=== PATIENT | male | born 1955 | race Caucasian/White ===

== ENCOUNTER 2021-03-23 11:12 | Inpatient (IN) ==
[2021-03-23] MEDS ORDERED: Heparin IV Adult Wt-Based Standard WITH Bolus Protocol IV STA (11:48)
[2021-03-23] MEDS ORDERED: HEPARIN SOD (PORCINE) 1000 UNIT/ML IV ONE (12:06)
[2021-03-23] MEDS ORDERED: ACETAMINOPHEN 325 MG TAB PO STA (12:13)
--- NOTE | 2021-03-23 12:16 | History & Physical Report ---
Date of Service March 23, 2021 Assessment & Plan (1) Pulmonary emboli: (2) Hypoxia: (3) Pre-diabetes: (4) Asthma: (5) HTN (hypertension): (6) Tobacco use: (7) Cerebral palsy: (8) Chronic cough: This is a 65-year-old male who has significant past medical history of prediabetes, HTN, asthma, restrictive lung disease, morbid obesity, depression, cerebral palsy, tobacco use presents to ED at the referral of PCP secondary to abnormal chest CTA. CTA chest 1. A few filling defects in the subsegmental arteries of the right upper lobe and left lower lobe suggesting pulmonary emboli. No right heart strain. Pulmonary embolism b/l subsegmental Hypoxia Admit to PCU continue IV heparin - pt received bolus in ED obtain b/l lower ext dopplers echocardiogram ordered continue oxygen supplementation CXR concerning for mild pulm edema/effusions - give IV lasix 20mg x 1 now daily weights/strict intake & output Elevated temperature likely reactive 2/2 to PE obtain urinalysis to r/o infectious etiology obtain procalcitonin Pre DM Last A1c 6.3 on 03/07/2021 Monitor BSG, if consistent hyperglycemia will add coverage HTN Patient BP on the lower side, he did take his home meds prior to arrival Continue metoprolol, hold losartan and amlodipine for now Reevaluate and resume antihypertensives when able Asthma/RLD/Chronic cough continue ICS/prn albuterol add tessalon perles add omeprazole for chronic cough ? gerd Pt had spirometry 01/28 which was reviewed by pulm and felt to be normal with mild restriction felt 2/2 to chronic hemidiaphragm elevation recommend close outpt f/u with pulm Tobacco use pt chews snuff 1/2 can/day declines nicotine patch for now encourage smoking cessation Morbid obesity encourage lifestyle modifications Cerebral Palsy functional supportive care pt lives home alone Dispo: PCU PCP: Juan FULL CODE Pt was seen and examined in collaboration with Dr. Luna, please see addendum History of Present Illness Chief Complaint: Referred by PCP secondary to abnormal CTA of chest. Primary Care Provider: Juan This is a 65-year-old male who has significant past medical history of prediabetes, HTN, asthma, restrictive lung disease, morbid obesity, depression, cerebral palsy, tobacco use presents to ED at the referral of PCP secondary to abnormal chest CTA. Patient was seen and evaluated in clinic today at PCPs office in follow-up chronic cough. He does follow with pulmonology secondary to asthma and restrictive lung disease and has been on and off multiple inhalers due to a persistent cough for the past year. He started Advair 2 weeks ago without improvement of cough. He further complains of feeling tired, worn out, dizzy and worsening FISH. Patient complained of progressive symptoms worsening in the last 2 weeks. In clinic he was visibly short of breath and lab work and CTA was ordered. He was found to have a right upper lobe and lower lobe pulmonary embolism with filling defects in subsegmental arteries. He was further referred to ED. In ED patient was hypoxic on arrival to 87% requiring 2 L of O2 to maintain oxygen saturation. His blood pressure was low normal as well. This morning he did take his amlodipine, losartan and metoprolol. He states over the past 2 to 3 days he has been more dizzy with walking. He denies any recent illness, fever, chills, sweats, syncope, chest pain, shortness breath at rest, hemoptysis, nausea, vomiting, abdominal pain, change in bowel or urinary habits. His biggest complaint is, "this cough." He states at night he, "feels up an entire T towel of foamy white phlegm." This cough has become debilitating and none of the inhalers are working. In ED patient remained hemodynamically stable although he was tachycardic with heart rate in the 120s, temp 37.8 and is requiring supplemental oxygen. H&H stable at 13.3 and 39.4. CMP generally unremarkable except for BUN 19, glucose 150 and albumin 3.3. In ED he was started on IV heparin with bolus. Patient's son is at bedside. Allergies Allergy/AdvReac Type Severity Reaction Status Date / Time FARIDEH Inhibitors AdvReac Unknown cough per Verified 03/25/18 05:53 PCP records Home Medications Medication Instructions Recorded Confirmed Type albuterol sulfate 90 mcg INHALATION Q4H PRN 03/23/21 03/23/21 History amlodipine 5 mg PO DAILY 03/23/21 03/23/21 History budesonide-formoterol [Symbicort] 2 inh INHALATION UD 03/23/21 03/23/21 History losartan 100 mg PO DAILY 03/23/21 03/23/21 History metoprolol succinate 25 mg PO DAILY 03/23/21 03/23/21 History Past Med/Surg History Medical History Asthma Cerebral palsy Depression HTN (hypertension) Pre-diabetes Tobacco use Surgical History History of endoscopic sinus surgery History of right shoulder replacement History of surgery on wrist History of total knee replacement (TKR) also with revision Dr. Akbar Family History Mother Hypertension Stroke Father Leukemia Social History (Updated 03/23/21 @ 13:31 by Joie Parish PA-C) Smoking Status: Never smoker Tobacco Type: Cigarettes and Smokeless Tobacco (Dip or Chew) Do You Dip or Chew Tobacco: Yes (1/2can/day); Hx Alcohol Use: Yes Alcohol type: beer Hx Substance Use: No Preferred Language: Micronesian Communication Ability: Effective A R Specialist Required: No Beliefs That Will Affect Care: None marital status: Single Current Living Situation: Family Current Living Situation Comment: lives w son Feels Safe at Home: Yes Safety Concerns: Feels Safe At This Time Assistive Devices: Oxygen - Continuous Review of Systems Review of Systems: All systems reviewed & are unremarkable except as noted in HPI & below Physical Exam Physical Exam: Constitutional: WD/WN, morbidly obese, vitals as above, NAD, sitting up in bed, pleasant, conversing easily Head: Normocephalic, Atraumatic Eyes: PERRL, conjunctivae normal, anicteric sclerae ENMT: external ear and nose normal, oropharynx normal Neck: trachea midline, no thyromegaly normal visual inspection Respiratory: normal respiratory effort, lungs clear to auscultation, no wheeze, rales, rhonchi. Normal insp/exp effort, no accessory muscle use Cardiovascular: RRR, no murmur, trace lower extremity pretibial edema right greater than left Vessels: no JVD or carotid bruit Chest: normal inspection of chest Abdomen: normal bowel sounds, soft, nontender, no hepatosplenomegaly Musculoskeletal: no cyanosis or clubbing, extremities motor strength 5/5 Skin: no rashes, warm and dry normal turgor Neurologic: PERRL, EOMI, accommodation nl, no face palsy, no dysarthria CN's II-XI intact bilaterally and moves all extremities Psychiatric: A+Ox3, euthymic affect Lymphatic: no cervical or axillary lymphadenopathy : deferred Results & Data Results & Data ([facility]) Vital Signs (Past 12 Hours) Vital Signs Temp Pulse Resp BP Pulse Ox 03/23/21 11:20 37.8 C H 120 H 22 129/82 87 L Diagnostic Findings CXR: 1. Interval progression of the diffuse interstitial/vascular thickening suggestive of mild pulmonary edema. 2. Persistent cardiomegaly and elevation of the right hemidiaphragm. 3. Trace bilateral pleural effusions. CTA Chest: EXAM EXAM: CT PULMONARY EMBOLUS W CONTRAST DATE and TIME: 03/23/2021 10:03 am HISTORY CLINICAL INFORMATION: rule out PE TECHNIQUE Oral Contrast: Oral contrast was not administered. IV Contrast: IV contrast used COMPARISON XR CHEST 2 VIEWS dated 01/12/2020 FINDINGS MEDIASTINUM AND RICKY: Unremarkable HEART: There is no pericardial effusion. LARGE AIRWAYS: Mild peribronchial thickening is likely inflammatory in nature. This is predominantly seen in the right middle and lower lobes. LUNGS: Right basilar atelectasis/scarring. Minimal left basilar atelectasis. Nodular foci along the fissures are likely subpleural nodes. PLEURA: There are no pleural effusions. CHEST WALL/SOFT TISSUES: There is no axillary lymphadenopathy. Elevated right hemidiaphragm. LINES AND DEVICES: None BONES: Degenerative osseous changes. Scoliosis. Right shoulder hardware. VESSELS: Atherosclerotic changes in the aorta and coronary arteries. A few filling defects in the subsegmental arteries of the right upper lobe seen on images 94, 98 and 76 of series 9. There is also a subsegmental filling defect in the left lower lobe on image 169 of series 9. UPPER ABDOMEN: Unremarkable IMPRESSION IMPRESSION 1. A few filling defects in the subsegmental arteries of the right upper lobe and left lower lobe suggesting pulmonary emboli. No right heart strain. 2. Chronic elevation of the right hemidiaphragm with basilar atelectasis/scarring. Consider fluoroscopic examination to evaluate the diaphragmatic motion. Medications Administered Medication List Heparin Sodium/Dextrose (Heparin Sodium/Dextrose) 25,000 units in 500 mls @ 33 mls/hr IV .[id number] [facility]; Protocol Stop: 04/22/21 12:05 Last Admin: 03/23/21 12:52 Dose: 1,650 units/hr, 33 mls/hr Documented by: [id number] Cosigned by: [id number] Discontinued Medications Acetaminophen (Acetaminophen 325 Mg Tab) 650 mg PO NOW STA Stop: 03/23/21 12:14 Last Admin: 03/23/21 12:49 Dose: 650 mg Documented by: [id number] Heparin Sodium (Porcine) (Heparin Sod (Porcine) 1000 Unit/Ml) 1 units IV NOW ONE Stop: 03/23/21 12:07 Last Admin: 03/23/21 12:52 Dose: 7,000 units Documented by: [id number] Cosigned by: [id number] Heparin Sodium/Dextrose (Heparin Iv Adult Wt-Based Standard With Bolus Protocol) 1 ea IV NOW STA; Protocol Stop: 03/23/21 11:49 Last Admin: 03/23/21 12:53 Dose: 1 ea Documented by: [id number] ECG Rate (beats per minute): 101 Rhythm: sinus tachycardia Findings: + nonspecific-ST abn (inferior) COVID-19 Results Results COVID-19 Adm Lab Results: RBC 4.35 M/uL (4.7-6.1) L 03/23/21 WBC 5.87 K/uL (4.8-10.8) 03/23/21 Hgb 13.3 g/dL (14.0-18.0) L 03/23/21 Hct 39.3 % (42-52) L 03/23/21 Plt Count 196 K/uL (130-400) 03/23/21 Neutrophils (%) (Auto) 40.9 % 03/23/21 Lymphocytes (%) (Auto) 48.2 % 03/23/21 Monocytes # (Auto) 0.49 K/uL (0.11-0.59) 03/23/21 Eosinophils # (Auto) 0.07 K/uL (0-0.5) 03/23/21 Immature Granulocyte % (Auto) 0.2 % 03/23/21 Neutrophils # (Auto) 2.40 K/uL (1.4-6.5) 03/23/21 Lymphocytes # (Auto) 2.83 K/uL (1.2-3.4) 03/23/21 Monocytes # (Auto) 0.49 K/uL (0.11-0.59) 03/23/21 Eosinophils # (Auto) 0.07 K/uL (0-0.5) 03/23/21 Basophils # (Auto) 0.07 K/uL (0-0.2) 03/23/21 Immature Granulocyte # (Auto) 0.01 K/uL (0.00-0.02) 03/23/21 Na 137 mmol/L (136-145) 03/23/21 K 4.2 mmol/L (3.5-5.1) 03/23/21 Cl 106 mmol/L (98-107) 03/23/21 CO2 24 mmol/L (21-32) 03/23/21 Anion Gap 7.0 (3-11) 03/23/21 BUN 19 mg/dl (7-18) H 03/23/21 Creatinine 0.92 mg/dl (0.6-1.4) 03/23/21 BUN/Creatinine Ratio 20.6 (10-20) H 03/23/21 Glucose Level 150 mg/dl (70-99) H 03/23/21 Ca 7.9 mg/dl (8.5-10.1) L 03/23/21 Total Bilirubin 0.6 mg/dl (0.2-1) 03/23/21 AST/SGOT 23 U/L (15-37) 03/23/21 ALT/SGPT 34 U/L (12-78) 03/23/21 Alkaline Phosphatase 144 U/L (45-117) H 03/23/21 Total Protein 7.0 gm/dl (6.4-8.2) 03/23/21 Albumin 3.3 gm/dl (3.4-5.0) L 03/23/21 Globulin 3.7 gm/dl (2.5-4.0) 03/23/21 Albumin/Globulin Ratio 0.9 (0.9-2) 03/23/21 Troponin I < 0.015 ng/ml (0-0.045) 03/23/21 KN-Lxl-Y-Type Natriuretic Pep 77 pg/ml (0-900) 03/23/21 Procalcitonin 0.42 ng/ml (0-0.5) 03/23/21 PTT 26.8 Seconds (21.0-31.0) 03/23/21 COVID-19 PCR NEGATIVE (Negative) 03/23/21 Chest X-Ray 03/23/21 Code Status & VTE Plan Code Status Full Code VTE Prophylaxis Plan VTE Prophylaxis will be ordered: No Supervising Physician Co-Signing Physician Notes Patient is a 65-year-old male with history of prediabetes, hypertension, asthma, restrictive lung disease and other medical problems presents with history of abnormal CT suggestive of bilateral pulmonary embolism. He states having worsening shortness of breath on minimal exertion. Also reports having ongoing nonexpectorant cough since about 1 year duration. He admits to being tired, dizzy today. Please review HPI for complete details of presentation. Outpatient CTA suggestive of filling defects in subsegmental arteries in the right upper lobe and left lower lobe suggestive of pulmonary emboli. Venous Dopplers currently pending. He is hypoxic while in ED at 87% on room air. On exam patient is obese, no apparent distress, normocephalic atraumatic, lungs are clear to auscultation, decreased breath sounds, S1-S2, no murmur, bilateral lower extremity edema right greater than left, abdomen soft, nontender, normal bowel sounds, distended, alert, awake, oriented, grossly no focal deficits. Patient is admitted for management of acute bilateral pulmonary embolism, acute respiratory failure secondary to PE. Will obtain venous Dopplers to rule out DVT. Start on IV heparin. Nebs as needed. Will likely need bronchoscopy eventually as outpatient to evaluate etiology for chronic cough. Continue supplemental oxygen as needed. Will obtain echo. I personally reviewed the record. Patient is interviewed and examined at bedside. Patient's care is coordinated with Joie Parish PA-C. Please refer to the documentation above for details of patient's presentation and for discussion of other issues.
[2021-03-23 12:21] LABS: Basophils # (auto) 0.07 K/uL (0-0.2); Basophils % (auto) 1.2 %; Eosinophils # (auto) 0.07 K/uL (0-0.5); Eosinophils % (auto) 1.2 %; Hematocrit (blood only) 39.3 % (42-52); Hemoglobin 13.3 g/dL (14.0-18.0); Immature Granulocytes # (auto) 0.01 K/uL (0.00-0.02); Immature Granulocytes % (auto) 0.2 %; Lymphocytes # (auto) 2.83 K/uL (1.2-3.4); Lymphocytes % (auto) 48.2 %; Mean Corpuscular Hemoglobin 30.6 pg (25-34); Mean Corpuscular Hgb Conc 33.8 g/dL (32-36); Mean Corpuscular Volume 90.3 fL (80-100); Mean Platelet Volume 8.4 fL (7.4-10.4); Monocytes # (auto) 0.49 K/uL (0.11-0.59); Monocytes % (auto) 8.3 %; Neutrophils % (auto) 40.9 %; Platelet Count 196 K/uL (130-400); RDW Coefficient of Variation 13.9 % (11.5-14.5); RDW Standard Deviation 46.3 fL (36.4-46.3); Red Blood Count 4.35 M/uL (4.7-6.1); White Blood Count 5.87 K/uL (4.8-10.8)
[2021-03-23 12:33] LABS: Partial Thromboplastin Time 26.8 Seconds (21.0-31.0)
[2021-03-23 12:44] LABS: Alanine Aminotransferase 34 U/L (12-78); Albumin Level 3.3 gm/dl (3.4-5.0); Aspartate Aminotransferase 23 U/L (15-37); BUN Creatinine Ratio 20.6 (10-20); Blood Urea Nitrogen 19 mg/dl (7-18); Calcium 7.9 mg/dl (8.5-10.1); Carbon Dioxide 24 mmol/L (21-32); Chloride 106 mmol/L (98-107); Creatinine Clr Calc Pharmacy 102.6 ml/min; Est GFR (African American) 100.8 ml/min; Glucose 150 mg/dl (70-99); Lipase 102 U/L (73-393); Potassium 4.2 mmol/L (3.5-5.1); Sodium 137 mmol/L (136-145)
[2021-03-23 12:49] LABS: Albumin Globulin Ratio 0.9 (0.9-2); Alkaline Phosphatase 144 U/L (45-117); Bilirubin,Total 0.6 mg/dl (0.2-1); Globulin 3.7 gm/dl (2.5-4.0); Troponin I < 0.015 ng/ml (0-0.045)
[2021-03-23] MEDS: HEPARIN SODIUM/DEXTROSE 25,000 UNITS/500 ML BAG IV SCH (12:52)
[2021-03-23] MEDS ORDERED: SODIUM CHLORIDE 0.9% 1000ML 1,000 ML IV SCH (13:15)
--- NOTE | 2021-03-23 13:40 | XRay Report ---
XR chest 1V portable HISTORY: cough COMPARISON: Chest 03/06/2018. FINDINGS: There are low lung volumes. No pneumothorax. Right shoulder resurfacing is again noted. The re is chronic elevation of the right hemidiaphragm. The cardiac silhouette remains enlarged. Trace bi lateral pleural fusions. Progressive interstitial/vascular thickening consistent with mild pulmonary edema. IMPRESSION: 1. Interval progression of the diffuse interstitial/vascular thickening suggestive of mild pulmonary edema. 2. Persistent cardiomegaly and elevation of the right hemidiaphragm. 3. Trace bilateral pleural effusions. ACT 112: Negative or not required by law. Electronically signed by: Gerard Shore M.D. 03/23/2021 1:39 PM
[2021-03-23] MEDS ORDERED: FUROSEMIDE 40 MG/4 ML VIAL IV STA (13:53)
[2021-03-23] MEDS ORDERED: GLUCOSE 40% GEL 15 GM TUBE PO PRN (15:22)
[2021-03-23] MEDS ORDERED: ONDANSETRON INJ 2 MG/ML 2 ML VIAL IV PRN (15:22)
[2021-03-23] MEDS ORDERED: GLUCAGON FOR INJ 1 MG VIAL SQ PRN (15:22)
[2021-03-23] MEDS ORDERED: HEPARIN SODIUM/DEXTROSE 25,000 UNITS/500 ML BAG IV SCH (15:22)
[2021-03-23] MEDS ORDERED: Heparin IV Adult Wt-Based Standard *NO* Bolus Protocol IV SCH (15:22)
[2021-03-23] MEDS ORDERED: ALUMINUM/MAGNESIUM SUSP 30 ML UDC PO PRN (15:22)
[2021-03-23] MEDS ORDERED: CARBOHYDRATES FOR HYPOGLYCEMIA PO PRN (15:22)
[2021-03-23] MEDS ORDERED: GLUCOSE 10 TABS/TUBE PO PRN (15:22)
[2021-03-23] MEDS ORDERED: DEXTROSE 50% 50 ML SYRINGE IV PRN (15:22)
[2021-03-23] MEDS ORDERED: MAGNESIUM HYDROXIDE SUSP 30 ML UDC PO PRN (15:22)
[2021-03-23] MEDS ORDERED: POLYETHYLENE (MIRALAX) 17 GM PACK PO PRN (15:22)
[2021-03-23] MEDS ORDERED: ALBUTEROL HFA 8 GM INHALER INH PRN (15:22)
[2021-03-23] MEDS ORDERED: FUROSEMIDE 20 MG in SYRINGE 0 ML IV ONE (16:00)
[2021-03-23] MEDS: PANTOprazole 40 MG TAB PO SCH (16:33)
[2021-03-23] MEDS: BENZONATATE 100 MG CAPSULE PO SCH ×2 (16:34→21:17)
--- NOTE | 2021-03-23 17:47 | Ultrasound Report ---
BILATERAL LOWER EXTREMITY VENOUS DOPPLER HISTORY: Acute pain and swelling of the lower legs edema, PE COMPARISON STUDY: None. FINDINGS: There is normal compressibility, flow, and augmentation within the bilateral lower extremit y deep venous systems. IMPRESSION: No DVT within the right or left lower extremity. ACT 112: Negative or not required by law. Electronically signed by: Bart Ashton M.D. 03/23/2021 5:46 PM
--- NOTE | 2021-03-23 18:37 | Emergency Department Note ---
History of Present Illness General Chief Complaint: Abnormal Labs/Diagnostic Testing Stated Complaint: ABN TESTING,REF BY DOC Time Seen by Provider: 03/23/21 11:36 History of Present Illness Provider Complaint: shortness of breath and cough Onset (ago): week(s) (2) Severity: moderate Consistency/Duration: + constant and + progressively worsening Maximum Pain Intensity: 0 Relieved By: + nothing Exacerbated By: + exertion, + movement and + coughing Associated symptoms: + cough; no chest pain, no pain with inspiration, no fever, no wheezing, no sputum production, no orthopnea, no lower extremity pain, no polyuria, no polydipsia, no paresthesias, no palpitations, no carpopedal spasm, no hemoptysis, no diaphoresis, no nausea/vomiting, no syncope, no abdominal pain, no rash, no sense of impending doom, no chest congestion, no dizziness and no lightheadedness Home Medications Medication Instructions Recorded Confirmed Type albuterol sulfate 90 mcg INHALATION Q4H PRN 03/23/21 03/23/21 History amlodipine 5 mg PO DAILY 03/23/21 03/23/21 History budesonide-formoterol [Symbicort] 2 inh INHALATION UD 03/23/21 03/23/21 History losartan 100 mg PO DAILY 03/23/21 03/23/21 History metoprolol succinate 25 mg PO DAILY 03/23/21 03/23/21 History Allergies Allergy/AdvReac Type Severity Reaction Status Date / Time FARIDEH Inhibitors AdvReac Unknown cough per Verified 03/25/18 05:53 PCP records Past Med/Surg History Medical History Asthma Cerebral palsy Depression HTN (hypertension) Pre-diabetes Tobacco use Surgical History History of endoscopic sinus surgery History of right shoulder replacement History of surgery on wrist History of total knee replacement (TKR) also with revision Dr. Akbar Family History Mother Hypertension Stroke Father Leukemia Social History Smoking Status: Never smoker Tobacco Type: Cigarettes and Smokeless Tobacco (Dip or Chew) Do You Dip or Chew Tobacco: Yes (1/2can/day); Hx Alcohol Use: Yes Alcohol type: beer Hx Substance Use: No Preferred Language: Icelandic Communication Ability: Effective Network Services Project Manager Required: No Beliefs That Will Affect Care: None marital status: Single Current Living Situation: Family Current Living Situation Comment: lives w son Feels Safe at Home: Yes Safety Concerns: Feels Safe At This Time Assistive Devices: Oxygen - Continuous Review of Systems A total of 10 systems reviewed and were otherwise negative Physical Exam Vital Signs: Vital Signs - 24 hr 03/23/21 11:20 03/23/21 11:42 03/23/21 11:44 Temperature 37.8 C H Temperature Source Temporal Artery Sc an Pulse Rate 120 H 108 H 105 H Pulse Rate from Sp O2 Sensor 108 H 104 H Respiratory Rate 22 24 30 H Respiratory Effort / Characteristics Short of Breath Blood Pressure 129/82 101/67 Blood Pressure Deirdre n 97 78 Blood Pressure Pos ition Sitting Pulse Oximetry 87 L 97 98 Oxygen Delivery Me thod Room Air Sepsis Recent Feve r Within 48 Hours No Sepsis New/Unexpla ined Change in Men paulina Status N/A Sepsis Action Take n by Nursing No Action Required 03/23/21 12:00 03/23/21 12:01 Temperature Temperature Source Pulse Rate 101 H 101 H Pulse Rate from Sp O2 Sensor 101 H 101 H Respiratory Rate 29 H 22 Respiratory Effort / Characteristics Blood Pressure 112/71 Blood Pressure Deirdre n 84 Blood Pressure Pos ition Pulse Oximetry 98 97 Oxygen Delivery Me thod Sepsis Recent Feve r Within 48 Hours Sepsis New/Unexpla ined Change in Men paulina Status Sepsis Action Take n by Nursing Physical Exam: Physical Exam GENERAL: He is oriented to person, place, and time. He appears well-developed and well-nourished. He does not appear distressed. HENT: Exam performed. - Head: Normocephalic and atraumatic. - Right Ear: External ear normal. No mastoid tenderness. - Left Ear: External ear normal. No mastoid tenderness. - Mouth/Throat: The oropharynx is clear and moist. No trismus in the jaw. No dental abscesses or uvula swelling. No oropharyngeal exudate or tonsillar abscesses. EYES: Conjunctivae and EOM are normal. Pupils are equal, round, and reactive to light. Right eye exhibits no discharge. Left eye exhibits no discharge. No scleral icterus. NECK: Normal range of motion. Neck supple. No JVD present. No spinous process tenderness present. No carotid bruit present. No rigidity. No tracheal deviation and normal range of motion present. No Brudzinski's sign and no Kernig's sign noted. CV: Tachycardic rate, regular rhythm, normal heart sounds and intact distal pulses. There is no peripheral edema. Palpable radial pulses bue. PULM/CHEST: Effort normal and breath sounds normal. No respiratory distress. No stridor. He has no wheezes. He has no rales. - Chest Wall: He exhibits no tenderness. ABD: The abdomen is soft. Bowel sounds are normal. He has no distension. No mass is present. There is no tenderness. There is no rebound, no guarding, no Mares's sign and no tenderness at McBurney's point. Rovsig negative. MUSC/SKEL: Normal range of motion. There is no peripheral edema, tenderness or deformity. LYMPH: No cervical adenopathy. NEURO: He is alert and oriented to person, place, and time. He has normal strength. No cranial nerve deficit or sensory deficit. Coordination and gait normal. GCS eye subscore is 4. GCS verbal subscore is 5. GCS motor subscore is 6. Cerebellar tests wnl. SKIN: Skin is warm and dry. He is not diaphoretic. PSYCH: He has a normal mood and affect. Behavior is normal. Judgment and thought content normal. Course Course 1136: The patient was evaluated in room B9. A complete history and physical exam was performed Cardiac monitoring: An order was placed for continuous cardiac monitoring. The monitor shows a rate of 110 with sinus rhythm Patient was found to be hypoxic on room air. Patient placed on 2 L oxygen nasal cannula which improved his oxygen saturation. Patient had a outpatient CTA done at [facility] which showed PEs. Patient be started on heparin and we will plan on admitting the patient to the [facility] hospitalist team. Administered Medications Benzonatate (Benzonatate 100 Mg Capsule) 100 mg PO TID [facility] Stop: 04/22/21 15:21 Last Admin: 03/23/21 16:34 Dose: 100 mg Documented by: [id number] Heparin Sodium/Dextrose (Heparin Sodium/Dextrose) 25,000 units in 500 mls @ 33 mls/hr IV .[id number] [facility]; Protocol Stop: 04/22/21 12:05 Last Admin: 03/23/21 12:52 Dose: 1,650 units/hr, 33 mls/hr Documented by: [id number] Cosigned by: [id number] Pantoprazole Sodium (Pantoprazole 40 Mg Tab) 40 mg PO DAILY [facility] Stop: 03/26/21 09:01 Last Admin: 03/23/21 16:33 Dose: 40 mg Documented by: [id number] Discontinued Medications Acetaminophen (Acetaminophen 325 Mg Tab) 650 mg PO NOW STA Stop: 03/23/21 12:14 Last Admin: 03/23/21 12:49 Dose: 650 mg Documented by: [id number] Furosemide (Furosemide 40 Mg/4 Ml Vial) 20 mg IV NOW STA Stop: 03/23/21 13:54 Last Admin: 03/23/21 15:58 Dose: Not Given Documented by: [id number] Heparin Sodium (Porcine) (Heparin Sod (Porcine) 1000 Unit/Ml) 1 units IV NOW ONE Stop: 03/23/21 12:07 Last Admin: 03/23/21 12:52 Dose: 7,000 units Documented by: [id number] Cosigned by: [id number] Heparin Sodium/Dextrose (Heparin Iv Adult Wt-Based Standard With Bolus Protocol) 1 ea IV NOW STA; Protocol Stop: 03/23/21 11:49 Last Admin: 03/23/21 12:53 Dose: 1 ea Documented by: [id number] Sodium Chloride (Nss 1000ml) 1,000 mls @ 80 mls/hr IV .[id number] [facility] Stop: 03/24/21 01:44 Last Admin: 03/23/21 15:25 Dose: Not Given Documented by: [id number] Furosemide 20 mg/ Syringe 2 mls @ 4 mls/min IV ONE ONE Stop: 03/23/21 16:01 Last Admin: 03/23/21 16:33 Dose: 4 mls/min Documented by: [id number] Medical Decision Making Laboratory Data Result diagrams: 03/23/21 12:04 03/23/21 12:04 Lab Results 03/23/21 03/23/21 03/23/21 Range/Units 12:04 12:04 12:04 WBC 5.87 (4.8-10.8) K/uL RBC 4.35 L (4.7-6.1) M/uL Hgb 13.3 L (14.0-18.0) g/dL Hct 39.3 L (42-52) % MCV 90.3 (80-100) fL MCH 30.6 (25-34) pg MCHC 33.8 (32-36) g/dL RDW Std Deviation 46.3 (36.4-46.3) fL RDW Coeff of Lorie 13.9 (11.5-14.5) % Plt Count 196 (130-400) K/uL MPV 8.4 (7.4-10.4) fL Immature Gran % (Auto) 0.2 % Neut % (Auto) 40.9 % Lymph % (Auto) 48.2 % [place] % (Auto) 8.3 % Eos % (Auto) 1.2 % Baso % (Auto) 1.2 % Neut # (Auto) 2.40 (1.4-6.5) K/uL Lymph # (Auto) 2.83 (1.2-3.4) K/uL [place] # (Auto) 0.49 (0.11-0.59) K/uL Eos # (Auto) 0.07 (0-0.5) K/uL Baso # (Auto) 0.07 (0-0.2) K/uL Immature Gran # (Auto) 0.01 (0.00-0.02) K/uL APTT 26.8 (21.0-31.0) Seconds PTT Ratio 1.0 Sodium 137 (136-145) mmol/L Potassium 4.2 (3.5-5.1) mmol/L Chloride 106 (98-107) mmol/L Carbon Dioxide 24 (21-32) mmol/L Anion Gap 7.0 (3-11) BUN 19 H (7-18) mg/dl Creatinine 0.92 (0.6-1.4) mg/dl Est Cr Clr Drug Dosing 102.6 ml/min Est GFR ( Amer) 100.8 ml/min Est GFR (Non-Af Amer) 87.0 ml/min BUN/Creatinine Ratio 20.6 H (10-20) Glucose 150 H (70-99) mg/dl Calcium 7.9 L (8.5-10.1) mg/dl Total Bilirubin 0.6 (0.2-1) mg/dl AST 23 (15-37) U/L ALT 34 (12-78) U/L Alkaline Phosphatase 144 H (45-117) U/L Troponin I < 0.015 (0-0.045) ng/ml Total Protein 7.0 (6.4-8.2) gm/dl Albumin 3.3 L (3.4-5.0) gm/dl Globulin 3.7 (2.5-4.0) gm/dl Albumin/Globulin Ratio 0.9 (0.9-2) Lipase 102 (73-393) U/L ECG Data Interpretation: Sinus tachycardia with rate of 101. NV QRS and QTc intervals are within normal limits. No ST elevation or ST depression. MDM Narrative The patient was evaluated in room B9. A complete history and physical exam was performed Cardiac monitoring: An order was placed for continuous cardiac monitoring. The monitor shows a rate of 110 with sinus rhythm Patient was found to be hypoxic on room air. Patient placed on 2 L oxygen nasal cannula which improved his oxygen saturation. Patient had a outpatient CTA done at [facility] which showed PEs. Patient be started on heparin and we will plan on admitting the patient to the [facility] hospitalist team. Impression & Plan Pulmonary emboli, Hypoxia Critical Care Time Critical Care Time: Yes Total Critical Care Time: 38 I have personally spent greater than 38 minutes of critical care time in the direct management of this patient. This includes bedside care, interpretation of diagnostic studies, and testing, discussion with consultants, patient, and family members, and other required patient management activities. This 38 minutes is in excess of all separately billable procedures. Discharge Plan Visit Data Chief Complaint: Abnormal Labs/Diagnostic Testing Stated Complaint: ABN TESTING,REF BY DOC ED Provider: Liam Cruz Discharge Problem: Pulmonary emboli, Hypoxia Patient Disposition: Admitted As Inpatient Discharge Instructions Interventions: ED Discharge Assessment Last Done: 03/23/21 15:06 Discharge Problem: Pulmonary emboli Qualifiers: Pulmonary embolism type: unspecified Chronicity: acute Acute cor pulmonale presence: without acute cor pulmonale Qualified Code(s): I26.99 - Other pulmonary embolism without acute cor pulmonale
[2021-03-23 20:10] LABS: Partial Thromboplastin Ratio 2.1
[2021-03-23 20:14] LABS: Partial Thromboplastin Time 54.6 Seconds (21.0-31.0)
[2021-03-24] MEDS: guaiFENesin/CODEINE 100MG/10MG 5ML UDC PO PRN ×3 (00:27→12:11)
[2021-03-24 03:01] LABS: Appearance Urine Clear (Clear); Bilirubin Urine Negative (Negative); Blood Urine Negative (Negative); Color Urine Yellow; Glucose Urine UA Negative (Negative); Ketones Urine Negative (Negative); Leukocyte Esterase Urine Negative (Negative); Nitrite Urine Negative (Negative); Protein Urine 1+ (Negative); Urobilinogen Urine Negative (Negative); pH Urine 5.5 (4.5-7.5)
[2021-03-24 03:18] LABS: Bacteria Urine Negative (Negative); Epithelial Cell Urine 0-5 /lpf (0-5); Mucus Urine Present (None Prsent); RBC Urine 0-4 /hpf (0-4); WBC Urine 0-5 /hpf (0-5)
[2021-03-24] MEDS: HEPARIN SODIUM/DEXTROSE 25,000 UNITS/500 ML BAG IV SCH ×2 (03:54→21:17)
[2021-03-24 06:27] LABS: Hematocrit (blood only) 38.9 % (42-52); Hemoglobin 13.2 g/dL (14.0-18.0); Mean Corpuscular Hemoglobin 31.1 pg (25-34); Mean Corpuscular Hgb Conc 33.9 g/dL (32-36); Mean Corpuscular Volume 91.7 fL (80-100); Mean Platelet Volume 8.4 fL (7.4-10.4); Platelet Count 208 K/uL (130-400); RDW Coefficient of Variation 14.2 % (11.5-14.5); RDW Standard Deviation 48.2 fL (36.4-46.3); Red Blood Count 4.24 M/uL (4.7-6.1); White Blood Count 7.03 K/uL (4.8-10.8)
[2021-03-24 06:55] LABS: BUN Creatinine Ratio 27.4 (10-20); Calcium 8.3 mg/dl (8.5-10.1); Creatinine Clr Calc Pharmacy 101.8 ml/min; Est GFR (African American) 99.5 ml/min; Est GFR (Non-African American) 85.8 ml/min; Magnesium 2.2 mg/dl (1.8-2.4); Potassium 3.9 mmol/L (3.5-5.1)
[2021-03-24 07:03] LABS: Partial Thromboplastin Ratio 2.2
[2021-03-24] MEDS: BENZONATATE 100 MG CAPSULE PO SCH ×3 (07:45→19:45)
[2021-03-24] MEDS: FLUTICASONE/VILANTEROL 200/25MCG 14 PUFFS/INHALER INH SCH (07:45)
[2021-03-24] MEDS: METOPROLOL SUCC 25MG EXT REL TAB PO SCH (07:45)
[2021-03-24] MEDS: PANTOprazole 40 MG TAB PO SCH (07:45)
[2021-03-24 07:48] LABS: Partial Thromboplastin Time 57.2 Seconds (21.0-31.0)
[2021-03-24] MEDS ORDERED: FUROSEMIDE 40 MG in SYRINGE 0 ML IV ONE (11:21)
[2021-03-24] MEDS ORDERED: FUROSEMIDE 40 MG/4 ML VIAL IV ONE (11:30)
--- NOTE | 2021-03-24 13:01 | XRay Report ---
XR chest 1V portable CLINICAL HISTORY: Pulmonary edema COMPARISON STUDY: 03/23/2021 FINDINGS: The heart remains enlarged. There is persistent elevation of the right hemidiaphragm. There is resolving pulmonary vascular congestion. Basilar opacities, likely are atelectatic. Trace pleural effusions cannot be excluded.[ IMPRESSION: 1. Improving pulmonary vascular congestion 2. Persistent elevation right hemidiaphragm 2. Possible trace pleural effusions ACT 112: Negative or not required by law. Electronically signed by: Kirill Harris M.D. 03/24/2021 12:59 PM
--- NOTE | 2021-03-24 16:06 | Hospitalist Progress Note ---
Date of Service March 24, 2021 Assessment & Plan (1) Pulmonary emboli: (2) Hypoxia: (3) Pre-diabetes: (4) Asthma: (5) HTN (hypertension): (6) Tobacco use: (7) Cerebral palsy: (8) Chronic cough: Patient is a 65 yr male with H/O Prediabetes, HTN, asthma, restrictive lung disease, morbid obesity, depression, cerebral palsy, tobacco use presents to ED at the referral of PCP secondary to abnormal chest CTA. Acute bilateral pulmonary embolism Mild Pulmonary Edema Hypoxia secondary to above --CTA chest: A few filling defects in the subsegmental arteries of the right upper lobe and left lower lobe suggesting pulmonary emboli. No right heart strain. --Venous Doppler: No DVT within the right or left lower extremity. Continue IV heparin Echo pending Lasix as needed Supplemental oxygen as needed Monitor I's and O's, daily weight Syncopal episode PVCs, PACs on monitor Monitor electrolytes and replace as needed Continue metoprolol We will obtain CT head Prediabetes Last A1c 6.3 on 03/07/2021 Monitor BSG HTN Bp stable Continue metoprolol Resume losartan, amlodipine as able Asthma/RLD/Chronic cough Chronic hemidiaphragm elevation Continue home inhalers Will likely need pulmonary evaluation with possible bronchoscopy as outpatient for chronic cough ? GERD contributing, trial of PPI Tobacco use pt chews snuff 1/2 can/day declines nicotine patch encourage smoking cessation Morbid obesity encourage lifestyle modifications BMI: 39.4 Cerebral Palsy functional supportive care CODE STATUS Full code Admission and Anticipated Discharge Date Admission Date: March 23, 2021 Subjective Patient is seen and examined at bedside States having chronic cough which is unchanged Also reports bilateral lower extremity edema Had a syncopal episode lasting for about a couple of seconds this afternoon We will obtain CT head Denies chest pain, dyspnea, and dizziness this morning Offers no other complaints Review of Systems Review of Systems: All systems reviewed & are unremarkable except as noted in HPI & below Physical Exam Physical Exam: Physical Exam: Vitals signs as noted above General Appearance:Obese, no apparent distress Head: normocephalic, Atraumatic Eyes: normal inspection, EOMI Neck: supple, Trachea midline Respiratory/Chest: Decreased breath sounds, CTA Cardiovascular: S1, S2, No murmur, Tachycardia Abdomen/GI:Soft, Non tender, Bowel sounds present Extremities/Musculoskeletal:normal inspection, B/L LE edema Neurologic/Psych:AAOX3, grossly no focal neurological deficits Skin: normal color, warm Results & Data Results & Data ([facility]) Vital Signs (Past 12 Hours) Vital Signs Temp Pulse Pulse Resp BP Pulse Ox 03/24/21 15:47 37.5 C 105 H 21 126/81 94 03/24/21 12:00 37 C 100 H 20 128/78 96 03/24/21 08:15 36.7 C 86 19 104/73 94 03/24/21 08:00 97 H Laboratory Results Short CBC 03/24/21 Range/Units 06:02 WBC 7.03 (4.8-10.8) K/uL Hgb 13.2 L (14.0-18.0) g/dL Hct 38.9 L (42-52) % Plt Count 208 (130-400) K/uL BMP 03/24/21 06:02 Sodium 133 L Potassium 3.9 Chloride 102 Carbon Dioxide 22 BUN 25 H Creatinine 0.93 Glucose 151 H Calcium 8.3 L Urine 03/24/21 Range/Units 02:50 Urine Color Yellow Urine Appearance Clear (Clear) Urine pH 5.5 (4.5-7.5) Ur Specific [place] 1.020 (1.000-1.030) Urine Protein 1+ H (Negative) Urine Glucose (UA) Negative (Negative)
--- NOTE | 2021-03-24 16:23 | CT Scan Report ---
CT head/brain wo con CLINICAL HISTORY: Syncope COMPARISON STUDY: No previous studies for comparison. TECHNIQUE: Axial CT of the brain is performed from the vertex to the skull base. IV contrast was not administered for this examination. A dose lowering technique was utilized adhering to the principles of ALARA. CT DOSE: 638.56 mGycm FINDINGS: No intra or extra-axial mass lesions are visualized. There is no CT evidence of acute cortical infarc tion. There is no evidence of midline shift. There is no acute hemorrhage. No calvarial fractures ar e visualized. There are patchy white matter hypodensities likely on a small vessel basis. There are atrophic change s present within the cerebellum and frontal lobes. Mild ventricular asymmetry, is likely either developmental or secondary to asymmetric volume loss. There is fluid and mucosal thickening within the maxillary ethmoid sphenoid and frontal sinuses. IMPRESSION: 1. No acute intracranial findings 2. Pansinus disease ACT 112: Negative or not required by law. Electronically signed by: Kirill Harris M.D. 03/24/2021 4:22 PM
[2021-03-24] MEDS: ACETAMINOPHEN 325 MG TAB PO PRN (17:50)
[2021-03-24] MEDS ORDERED: BENZONATATE 100 MG CAPSULE PO SCH (21:00)
[2021-03-24] MEDS: DEXTROMETHORPHAN POLYMR COMPLX 30 MG/5 ML UDP PO PRN (21:06)
[2021-03-25] MEDS: ACETAMINOPHEN 325 MG TAB PO PRN ×3 (04:00→14:00)
[2021-03-25] MEDS: DEXTROMETHORPHAN POLYMR COMPLX 30 MG/5 ML UDP PO PRN (04:59)
--- NOTE | 2021-03-25 06:04 | Electrocardiogram Report ---
Test Reason : Blood Pressure : / mmHG Vent. Rate : 101 BPM Atrial Rate : 101 BPM P-R Int : 172 ms QRS Dur : 084 ms QT Int : 332 ms P-R-T Axes : 001 038 006 degrees QTc Int : 430 ms Sinus tachycardia Otherwise normal ECG When compared with ECG of 06-MAR-2018 10:25, Nonspecific T wave abnormality now evident in Inferior leads Confirmed by Rajeev Perez ([id number]) on 03/25/2021 6:03:37 AM Referred By: Confirmed By:Rajeev Perez
[2021-03-25 06:41] LABS: Hematocrit (blood only) 35.5 % (42-52); Mean Corpuscular Hemoglobin 30.2 pg (25-34); Mean Corpuscular Hgb Conc 33.8 g/dL (32-36); Mean Corpuscular Volume 89.2 fL (80-100); Mean Platelet Volume 8.4 fL (7.4-10.4); Platelet Count 190 K/uL (130-400); RDW Coefficient of Variation 13.9 % (11.5-14.5); RDW Standard Deviation 45.8 fL (36.4-46.3); Red Blood Count 3.98 M/uL (4.7-6.1); White Blood Count 7.12 K/uL (4.8-10.8)
--- NOTE | 2021-03-25 06:54 | Electrocardiogram Report ---
Test Reason : Blood Pressure : / mmHG Vent. Rate : 095 BPM Atrial Rate : 095 BPM P-R Int : 182 ms QRS Dur : 080 ms QT Int : 342 ms P-R-T Axes : 002 027 008 degrees QTc Int : 429 ms Normal sinus rhythm Normal ECG When compared with ECG of 23-MAR-2021 12:00, No significant change was found Confirmed by Rajeev Perez ([id number]) on 03/25/2021 6:54:05 AM Referred By: Berlin Martinez Confirmed By:Rajeev Perez
[2021-03-25 07:13] LABS: BUN Creatinine Ratio 28.7 (10-20); Calcium 8.5 mg/dl (8.5-10.1); Creatinine Clr Calc Pharmacy 101.7 ml/min; Est GFR (African American) 99.5 ml/min; Est GFR (Non-African American) 85.8 ml/min; Magnesium 2.2 mg/dl (1.8-2.4); Potassium 3.5 mmol/L (3.5-5.1)
[2021-03-25 07:31] LABS: Partial Thromboplastin Ratio 2.6
[2021-03-25 07:38] LABS: Partial Thromboplastin Time 68.8 Seconds (21.0-31.0)
--- NOTE | 2021-03-25 08:26 | Pulmonary Consultation ---
Date of Consultation March 25, 2021 Assessment & Plan (1) Chronic cough: (2) Pulmonary emboli: Acute cor pulmonale presence: without acute cor pulmonale Chronicity: acute Pulmonary embolism type: unspecified Qualified Code(s): I26.99 - Other pulmonary embolism without acute cor pulmonale (3) Hypoxia: (4) Elevated diaphragm: Impression: 65-year-old male with chronic cough. He is apparently been worked up in the pulmonary clinic at [facility] but I do not have records from that evaluation to review. Leading etiologies would be esophageal reflux followed by upper airway cough syndrome. Cannot rule out a component of his losartan causing cough. Asthma appears to be less likely. He does have subsegmental PEs but is hemodynamically stable. He also has an elevated hemidiaphragm and its unclear what evaluation has had for this in the past. Recommendations: 1. Chronic cough: This is an outpatient work-up and the patient does not need to remain in the hospital for evaluation management of his cough. At this point time I would recommend discontinuation of his losartan and institution of other antihypertensives avoiding FARIDEH inhibitors or ARB's as they may be contributing to cough. Can continue Tessalon as needed to see if this is effective. If not, trial of Ultram 25 to 50 mg every 6-8 hours may be beneficial with regards to symptom control. Agree with PPI and may consider Carafate. Would also treat upper airway cough syndrome with chlorpheniramine, Sudafed, Flonase, and saline sinus irrigation. He can follow-up with his outpatient pulmonary providers and primary care provider regarding this complaint. If these medications are to be effective, they may take 4 to 6 weeks to show a significant effect. 2. Subsegmental PE: Biomarkers are negative. He is hemodynamically stable, actually on the hypertensive side. Agree with anticoagulation. Okay to transition to DOAC. Recommend least 3 months anticoagulation at this point time. Again he can follow-up with his primary care provider and outpatient big data developer if needed. Unclear if hypercoagulable work-up should be conducted in this patient. 3. Elevated hemidiaphragm: Unclear what work-up has been done in the past. May consider outpatient sniff test. Consideration for screening for sleep disordered breathing as an outpatient may be appropriate. Patient appears stable to discharge from a pulmonary standpoint. Again work-up of the majority of his issues can continue to be conducted in the outpatient setting with his established big data developer. We will sign off at this point in time. Feel free to contact us if we can be of additional assistance. History of Present Illness Attending Physician: Yung Luna MD History of Present Illness Asked by hospitalist to evaluate this patient with chronic cough. History is obtained from review electronic medical record and discussion with the patient bedside. Patient is a 65-year-old male who is followed by Dr. Hopson at the [facility] pulmonary clinic. He reportedly has a history of asthma but I do not have his PFTs available. He was admitted for subsegmental PE but his issue prompting a pulmonary consultation is a cough its been going on for 18 months. He states that none of the interventions taken by his primary care provider or outpatient big data developer been effective in improving his cough. He states the cough occurs fairly regularly especially whenever he drinks or eats spicy food. He does not endorse reflux. He has been tried on inhalers including albuterol and another inhaler that he cannot recall but he states these were ineffectual. He had sinus surgery in the past and does not endorse significant postnasal drip. He has been on losartan for quite some time. He is unclear if there is a temporal relationship between this medication and the cough. He cannot recall if he has had cough suppressant medications in the past. He does not report wheezing Patient was seen by his primary care provider on the th complaining of persistent cough and shortness of breath. He was sent for CT angiogram which showed subsegmental filling defects and was referred to the emergency room. He is mildly hypoxemic at 87% and did note some dizziness and presyncope. He was admitted and placed on heparin. Pulmonary was consulted for evaluation of the cough. Allergies Allergy/AdvReac Type Severity Reaction Status Date / Time FARIDEH Inhibitors AdvReac Unknown cough per Verified 03/25/18 05:53 PCP records Home Medications Medication Instructions Recorded Confirmed Type albuterol sulfate 90 mcg INHALATION Q4H PRN 03/23/21 03/23/21 History amlodipine 5 mg PO DAILY 03/23/21 03/23/21 History budesonide-formoterol [Symbicort] 2 inh INHALATION UD 03/23/21 03/23/21 History losartan 100 mg PO DAILY 03/23/21 03/23/21 History metoprolol succinate 25 mg PO DAILY 03/23/21 03/23/21 History Patient History Medical History Asthma Cerebral palsy Depression HTN (hypertension) Pre-diabetes Tobacco use Surgical History History of endoscopic sinus surgery History of right shoulder replacement History of surgery on wrist History of total knee replacement (TKR) also with revision Dr. Akbar Family History Mother Hypertension Stroke Father Leukemia Social History Smoking Status: Never smoker Tobacco Type: Cigarettes and Smokeless Tobacco (Dip or Chew) Do You Dip or Chew Tobacco: Yes (1/2can/day); Hx Alcohol Use: Yes Alcohol type: beer Hx Substance Use: No Preferred Language: Salvadorean Communication Ability: Effective Intel Recruiter Required: No Beliefs That Will Affect Care: None marital status: Single Current Living Situation: Family Current Living Situation Comment: lives w son Feels Safe at Home: Yes Safety Concerns: Feels Safe At This Time Assistive Devices: Oxygen - Continuous Review of Systems Review of Systems: All systems reviewed & are unremarkable except as noted in HPI & below Physical Exam Constitutional: WD/WN, vitals as above Neck: trachea midline, no thyromegaly Respiratory: normal respiratory effort, lungs clear to auscultation Cardiovascular: RRR, no murmur, no edema Gastrointestinal (Abdomen): normal bowel sounds, soft, nontender, no hepatosplenomegaly Musculoskeletal: Extremities: extremities normal to inspection Skin: no rashes, warm and dry Neurologic: Nonfocal exam Lymphatic: no cervical lymphadenopathy Results & Data Results & [facility] ([facility]) Vital Signs (Past 12 Hours) Vital Signs Temp Pulse Pulse Resp BP Pulse Ox 03/25/21 08:01 36.8 C 87 22 150/90 H 94 03/25/21 04:30 36.9 C 03/25/21 03:42 37.9 C H 109 H 22 128/83 94 03/24/21 23:23 96 H 03/24/21 22:52 37.6 C H 100 H 20 113/72 93 Laboratory Results 03/25/21 06:15 03/25/21 06:15 No peripheral eosinophilia noted Covid test negative Diagnostic Findings CTA from [facility] was independently reviewed. The lung parenchyma is unremar kable. There are small subsegmental filling defects. Marked elevation of the right hemidiaphragm. Chest x-ray demonstrated low lung volumes. The right diaphragm is elevated. PG Care Time/CCT Total # of Minutes Spent Total Time Spent with Patient: Total time spent is greater than 50% in coordination of care (as documented) at patient's floor/unit and/or counseling patient: Coding Level of Care Code 32929 Inpt Consult Level 4 Diagnoses Chronic cough R05 Pulmonary emboli I26.99 Acute cor pulmonale presence: without acute cor pulmonale Chronicity: acute Pulmonary embolism type: unspecified Hypoxia R09.02 Elevated diaphragm J98.6
[2021-03-25] MEDS ORDERED: POTASSIUM CHLORIDE CRTAB 20 MEQ TABCR PO ONE (08:59)
[2021-03-25] MEDS ORDERED: amLODIPine BESYLATE 5 MG TAB PO SCH (09:00)
[2021-03-25] MEDS ORDERED: hydroCHLOROthiazide 25 MG TAB PO SCH (09:00)
[2021-03-25] MEDS ORDERED: FLUTICASONE PROPIONATE NA SPR 16 GM BTL SCH (09:00)
[2021-03-25] MEDS: BENZONATATE 100 MG CAPSULE PO SCH (09:01)
[2021-03-25] MEDS: METOPROLOL SUCC 25MG EXT REL TAB PO SCH (09:02)
[2021-03-25] MEDS: PANTOprazole 40 MG TAB PO SCH (09:03)
[2021-03-25] MEDS: FLUTICASONE/VILANTEROL 200/25MCG 14 PUFFS/INHALER INH SCH (09:05)
[2021-03-25] MEDS ORDERED: APIXABAN 5 MG TABLET PO SCH (09:30)
[2021-03-25] MEDS ORDERED: traMADol HCL 50 MG TABLET PO PRN (11:04)
--- NOTE | 2021-03-25 12:57 | Hospitalist Progress Note ---
Date of Service March 25, 2021 Assessment & Plan (1) Pulmonary emboli: (2) Hypoxia: (3) Pre-diabetes: (4) Asthma: (5) HTN (hypertension): (6) Tobacco use: (7) Cerebral palsy: (8) Chronic cough: Patient is a 65 yr male with H/O Prediabetes, HTN, asthma, restrictive lung disease, morbid obesity, depression, cerebral palsy, tobacco use presents to ED at the referral of PCP secondary to abnormal chest CTA. Acute bilateral pulmonary embolism Mild Acute Pulmonary Edema Hypoxia secondary to above --CTA chest: A few filling defects in the subsegmental arteries of the right upper lobe and left lower lobe suggesting pulmonary emboli. No right heart strain. --Venous Doppler: No DVT within the right or left lower extremity. --ECHO: Left ventricle is normal in size. EF 55 to 60%. Right ventricle is normal in size. The right ventricular systolic function is normal. Left atrial size is normal. Right atrial size is normal. Lasix as needed Supplemental oxygen as needed Monitor I's and O's, daily weight IV Heparin transitioned to Eliquis as patient's preference 2 step: Did not qualify for oxygen Syncopal episode Likely vasovagal due to intractable cough CT Head:No acute intracranial findings. Pansinus disease PVCs, PACs on monitor Monitor electrolytes and replace as needed Continue metoprolol Chronic Cough Unclear Etiology Appreciate Pulmonology Input Trial of PPI, Flonase Losartan discontinued Advised to follow-up with pulmonology as outpatient. Right Hip Pain H/O Hip replacement Refused Hip X ray Prefers to follow up with [facility] as outpatient Prediabetes Last A1c 6.3 on 03/07/2021 Monitor BSG HTN Bp stable Continue metoprolol Resume amlodipine Losartan discontinued as likely contributing to cough Started on HCTZ Asthma/RLD Chronic hemidiaphragm elevation No signs of exacerbation Continue home inhalers Tobacco use pt chews snuff 1/2 can/day declines nicotine patch encourage smoking cessation Morbid obesity encourage lifestyle modifications BMI: 39.4 Cerebral Palsy functional supportive care CODE STATUS Full code Admission and Anticipated Discharge Date Admission Date: March 23, 2021 Subjective Patient is seen and examined at bedside Reports chronic right hip pain Cough intermittent No bleeding issues Denies chest pain, dyspnea, and dizziness this morning Eager to get discharged Review of Systems Review of Systems: All systems reviewed & are unremarkable except as noted in HPI & below Physical Exam Physical Exam: Physical Exam: Vitals signs as noted above General Appearance:Obese, no apparent distress Head: normocephalic, Atraumatic Eyes: normal inspection, EOMI Neck: supple, Trachea midline Respiratory/Chest: Decreased breath sounds, CTA Cardiovascular: S1, S2, No murmur Abdomen/GI:Soft, Non tender, Bowel sounds present Extremities/Musculoskeletal:normal inspection, B/L LE edema Neurologic/Psych:AAOX3, grossly no focal neurological deficits Skin: normal color, warm Results & Data Results & Data ([facility]) Vital Signs (Past 12 Hours) Vital Signs Temp Pulse Pulse Pulse Pulse Resp Resp 03/25/21 12:14 36.8 C 95 H 20 03/25/21 10:16 108 H 99 H 97 H 22 03/25/21 08:01 36.8 C 87 22 03/25/21 04:30 36.9 C 03/25/21 03:42 37.9 C H 109 H 22 Resp Resp BP Pulse Ox Pulse Ox Pulse Ox Pulse Ox 03/25/21 12:14 110/59 L 92 03/25/21 10:16 22 20 90 94 94 03/25/21 08:01 150/90 H 94 03/25/21 04:30 03/25/21 03:42 128/83 94 Laboratory Results Short CBC 03/25/21 Range/Units 06:15 WBC 7.12 (4.8-10.8) K/uL Hgb 12.0 L (14.0-18.0) g/dL Hct 35.5 L (42-52) % Plt Count 190 (130-400) K/uL BMP 03/25/21 06:15 Sodium 131 L Potassium 3.5 Chloride 100 Carbon Dioxide 22 BUN 27 H Creatinine 0.93 Glucose 154 H Calcium 8.5
--- NOTE | 2021-03-25 14:14 | Discharge Summary ---
Date of Service March 25, 2021 Admission HPI Per Admitting Provider This is a 65-year-old male who has significant past medical history of prediabetes, HTN, asthma, restrictive lung disease, morbid obesity, depression, cerebral palsy, tobacco use presents to ED at the referral of PCP secondary to abnormal chest CTA. Patient was seen and evaluated in clinic today at PCPs office in follow-up chronic cough. He does follow with pulmonology secondary to asthma and restrictive lung disease and has been on and off multiple inhalers due to a persistent cough for the past year. He started Advair 2 weeks ago without improvement of cough. He further complains of feeling tired, worn out, dizzy and worsening FISH. Patient complained of progressive symptoms worsening in the last 2 weeks. In clinic he was visibly short of breath and lab work and CTA was ordered. He was found to have a right upper lobe and lower lobe pulmonary embolism with filling defects in subsegmental arteries. He was further referred to ED. In ED patient was hypoxic on arrival to 87% requiring 2 L of O2 to maintain oxygen saturation. His blood pressure was low normal as well. This morning he did take his amlodipine, losartan and metoprolol. He states over the past 2 to 3 days he has been more dizzy with walking. He denies any recent illness, fever, chills, sweats, syncope, chest pain, shortness breath at rest, hemoptysis, nausea, vomiting, abdominal pain, change in bowel or urinary habits. His biggest complaint is, "this cough." He states at night he, "feels up an entire T towel of foamy white phlegm." This cough has become debilitating and none of the inhalers are working. In ED patient remained hemodynamically stable although he was tachycardic with heart rate in the 120s, temp 37.8 and is requiring supplemental oxygen. H&H stable at 13.3 and 39.4. CMP generally unremarkable except for BUN 19, glucose 150 and albumin 3.3. In ED he was started on IV heparin with bolus. Patient's son is at bedside. Admission Exam Per Admitting Provider Physical Exam Physical Exam: Constitutional: WD/WN, morbidly obese, vitals as above, NAD, sitting up in bed, pleasant, conversing easily Head: Normocephalic, Atraumatic Eyes: PERRL, conjunctivae normal, anicteric sclerae ENMT: external ear and nose normal, oropharynx normal Neck: trachea midline, no thyromegaly normal visual inspection Respiratory: normal respiratory effort, lungs clear to auscultation, no wheeze, rales, rhonchi. Normal insp/exp effort, no accessory muscle use Cardiovascular: RRR, no murmur, trace lower extremity pretibial edema right greater than left Vessels: no JVD or carotid bruit Chest: normal inspection of chest Abdomen: normal bowel sounds, soft, nontender, no hepatosplenomegaly Musculoskeletal: no cyanosis or clubbing, extremities motor strength 5/5 Skin: no rashes, warm and dry normal turgor Neurologic: PERRL, EOMI, accommodation nl, no face palsy, no dysarthria CN's II-XI intact bilaterally and moves all extremities Psychiatric: A+Ox3, euthymic affect Lymphatic: no cervical or axillary lymphadenopathy : deferred Principal Diagnosis Acute bilateral pulmonary embolism Mild Pulmonary Edema Syncopal episode Chronic Cough Discharge Data Allergies Allergy/AdvReac Type Severity Reaction Status Date / Time FARIDEH Inhibitors AdvReac Unknown cough per Verified 03/25/18 05:53 PCP records Consultations 03/23/21 11:51 ED Decision to Admit Stat 03/25/21 08:00 Consult Pulmonology Routine Procedures Performed --CTA chest: A few filling defects in the subsegmental arteries of the right upper lobe and left lower lobe suggesting pulmonary emboli. No right heart strain. --Venous Doppler: No DVT within the right or left lower extremity. --ECHO: Left ventricle is normal in size. EF 55 to 60%. Right ventricle is normal in size. The right ventricular systolic function is normal. Left atrial size is normal. Right atrial size is normal. Lasix as needed Ordered Studies 03/23/21 13:04 US venous doppler LE BI Stat 03/24/21 15:49 CT head/brain wo con Urgent Hospital Course (1) Pulmonary emboli: (2) Hypoxia: (3) Pre-diabetes: (4) Asthma: (5) HTN (hypertension): (6) Tobacco use: (7) Cerebral palsy: (8) Chronic cough: Patient is a 65 yr male with H/O Prediabetes, HTN, asthma, restrictive lung disease, morbid obesity, depression, cerebral palsy, tobacco use presents to ED at the referral of PCP secondary to abnormal chest CTA. Acute bilateral pulmonary embolism Mild Acute Pulmonary Edema Hypoxia secondary to above --CTA chest: A few filling defects in the subsegmental arteries of the right upper lobe and left lower lobe suggesting pulmonary emboli. No right heart strain. --Venous Doppler: No DVT within the right or left lower extremity. --ECHO: Left ventricle is normal in size. EF 55 to 60%. Right ventricle is normal in size. The right ventricular systolic function is normal. Left atrial size is normal. Right atrial size is normal. Lasix as needed Supplemental oxygen as needed Monitor I's and O's, daily weight IV Heparin transitioned to Eliquis as patient's preference 2 step: Did not qualify for oxygen Syncopal episode Likely vasovagal due to intractable cough CT Head:No acute intracranial findings. Pansinus disease PVCs, PACs on monitor Monitor electrolytes and replace as needed Continue metoprolol Chronic Cough Unclear Etiology Appreciate Pulmonology Input Trial of PPI, Flonase Losartan discontinued Advised to follow-up with pulmonology as outpatient. Right Hip Pain H/O Hip replacement Refused Hip X ray Prefers to follow up with [facility] as outpatient Prediabetes Last A1c 6.3 on 03/07/2021 Monitor BSG HTN Bp stable Continue metoprolol Resume amlodipine Losartan discontinued as likely contributing to cough Started on HCTZ Asthma/RLD Chronic hemidiaphragm elevation No signs of exacerbation Continue home inhalers Tobacco use pt chews snuff 1/2 can/day declines nicotine patch encourage smoking cessation Morbid obesity encourage lifestyle modifications BMI: 39.4 Cerebral Palsy functional supportive care CODE STATUS Full code Total Time Total Time Spent Total Time Spent (In Minutes): 41 minutes Total Time Includes: Examination of the Patient, Discharge Planning, Medication Reconciliation, Communication With Other Providers and Other Discharge Plan Discharge Items Patient Disposition: Home - Self-Care Reason For Visit: PULMONARY EMBOLISM,HYPOXIA Discharge Diagnosis: Acute bilateral pulmonary embolism Mild Pulmonary Edema Syncopal episode Chronic Cough Activity: Per Instructions section Exercise/Sports: Wait until after follow-up appointment Non-emergency contact: Primary Care Provider and Courier Call non-emergency contact if: you have any medication questions, your symptoms worsen, your pain is not controlled, your pain is concerning for you and you have a fever Follow-up/Referrals: Berlin Martinez MD [Primary Care Provider] - (Date & Time 03/30/2021 3:20 PM Provider Berlin Martinez MD Department Family [facility] ) Diet: Carb Consistent or DM2 and Heart Healthy Addtl Attending Provider Instructions: Follow-up with your primary care physician Dr. Martinez in 1 week as advised Follow-up with your cadd instructor for further evaluation of chronic cough Follow-up with your orthopedic surgeon as recommended for your chronic right hip pain. Get hypercoagulable work-up as outpatient to determine the cause for your pulmonary embolism. Apixaban (Eliquis Course): Start taking 10 mg twice a day for 7 days and then switch to 5 mg twice a day. Duration of the course to be determined by your primary care physician. Seek immediate medical attention if your symptoms reoccur or worsen Please take all medications as instructed on discharge list below. Please call if you have any questions or problems. You can reach a [facility] hospitalist on duty at [facility] 24 hours a day by calling [phone] Pending Studies at Discharge: No Stand-Alone Forms: My [facility], Smoking Cessation Medications and DC Order Prescriptions: New apixaban 5 mg (74 tabs) tablets,dose pack 5 mg PO UD Qty: 74 RF: 1 tramadol 50 mg Tablet 50 mg PO Q8H PRN (Reason: pain) Qty: 10 RF: 0 benzonatate [Tessalon Perles] 100 mg Capsule 100 mg PO TID PRN (Reason: Cough) Qty: 20 RF: 0 pantoprazole 40 mg Tablet,Delayed Release (Dr/Ec) 40 mg PO DAILY Qty: 30 RF: 0 hydrochlorothiazide 25 mg Tablet 25 mg PO QAM Qty: 30 RF: 0 fluticasone propionate 50 mcg/actuation [place],Suspension 2 spray NA DAILY Qty: 1 RF: 1 Continued amlodipine 5 mg tablet 5 mg PO DAILY RF: 0 metoprolol succinate 25 mg tablet extended release 24 hr 25 mg PO DAILY RF: 0 albuterol sulfate 90 mcg/actuation HFA aerosol inhaler 90 mcg INHALATION Q4H PRN (Reason: Shortness Of Breath) RF: 0 budesonide-formoterol [Symbicort] 160-4.5 mcg/actuation HFA aerosol inhaler 2 inh INHALATION UD RF: 0 Discontinued losartan 100 mg tablet 100 mg PO DAILY RF: 0 Discharge Orders: Discharge Order (Routine); Ordered 03/25/21 Ordered By: Yung Kapadia/Other Patient Handouts: Controlling High Blood Pressure, How Your Hip Works, Living with Osteoarthritis, Osteoarthritis: Coping with Pain, Osteoarthritis Medicine, Blood Pressure Check Steps Admission Data Admit Date/Time: 03/23/21 12:12 Attending Provider: Yung Luna Admit Provider: Yung Luna Primary Care Provider: Berlin Martinez Other Providers: Yung Luna ; Yrn Westfall Other Interventions: Discharge Summary Assessment (RN) Last Done: 03/25/21 14:07
--- NOTE | 2021-03-26 07:52 | Electrocardiogram Report ---
Test Reason : Blood Pressure : / mmHG Vent. Rate : 099 BPM Atrial Rate : 099 BPM P-R Int : 178 ms QRS Dur : 084 ms QT Int : 324 ms P-R-T Axes : -01 016 006 degrees QTc Int : 415 ms Normal sinus rhythm Normal ECG When compared with ECG of 24-MAR-2021 05:56, No significant change was found Confirmed by Rajeev Perez ([id number]) on 03/26/2021 7:52:40 AM Referred By: Berlin Martinez Confirmed By:Rajeev Perez
== END 2021-03-25 14:48 | disposition home or self-care (01) | DRG 175 ==
LOC: ED 11:12 → 2S 12:12

== ENCOUNTER 2022-10-05 12:02 | Inpatient (IN) ==
--- NOTE | 2022-10-05 12:12 | Emergency Department Note ---
Impression & Plan SIRS (systemic inflammatory response syndrome), Influenza A, Restrictive lung disease, Sinus tachycardia ED Provider Note NAME: ROYA CANNON AGE: 67 SEX: M : 1955 ARRIVES VIA: Walk-In INFORMANT: Patient, ED PROVIDER(S): Christopher Cummings MD Chief Complaint: Shortness of breath HPI: Patient presents due to concern for shortness of breath which is been ongoing for the last week. The patient has had productive sputum. Patient denies any chest pains but has had shortness of breath and FISH. Patient does have a prior history of PE does take blood thinning medication. Patient does have a history of restrictive lung disease. Patient does use tobacco. Patient does have some associated wheezing. The patient denies any fevers or chills. No exacerbating or remitting factors. I did review the patient's discharge summary from March 2021. Patient does have a known history of asthma and restrictive lung disease COPD and tobacco use who had an abnormal CT at that time. Patient had no evidence of DVT in the lower extremities at that time. No evidence of right heart strain based on the CT of the chest with the patient did have a few filling defects in the subsegmental arteries of the right upper lobe and left lower lobe patient's echo that time showed EF of 55 to 60% right ventricle was normal in size and normal RV function. MDM: Patient presented due to concern for shortness of breath and associated cough. Patient was hypoxemic and was placed on supplemental nasal cannula oxygen. Blood work is obtained along with an EKG troponin and chest x-ray. Patient's blood work showed a normal white counts H&H and platelet count. Kidney function was unremarkable. Lactate not elevated. The patient did receive an empiric dose of antibiotics. Troponin borderline elevated at 23.8. No active chest pain. Pro- Denny is 2.2. The patient did receive a dose of cefepime. Patient's MRSA swab was negative. Positive for flu. I did convey the positive flu finding to the inpatient team. The patient has had continued tachycardia. Patient was ordered additional IV fluids as do believe that this patient does have an infectious etiology. Patient is currently anticoagulated on Xarelto. I did speak with the on-call hospitalist GABRIELLE Howard and the patient was admitted to the medicine service by Dr. Estrada. ROS: See HPI for pertinent positives and negatives. A total of 10 systems were r eviewed and otherwise negative. Past medical history: See below Surgical history: See below Social history: See below Physical Exam: GENERAL: NAD, wearing a mask, non-toxic. EYE EXAM: Normal conjunctiva. PERRL, no anisocoria and EOM's grossly intact w/o pain. NECK: Supple, no nuchal rigidity, no adenopathy, non-tender. No signs of meningismus. FROM of the neck with good chin to chest and neck extension. No stridor. LUNGS: Rhonchi with associated inspiratory Next Tory wheezing. Normal chest wall mechanics. HEART: Tachycardic and regular, no MRG. ABDOMEN: Abdomen soft, non-tender, normo-active bowel sounds, no masses, no rebound or guarding. BACK: No CVA TTP. SKIN: No rashes and no bruising. UPPER EXTREMITIES: Upper extremities are grossly normal. LOWER EXTREMITIES: Grossly normal, no edema. NEURO EXAM: A&O x3, cranial nerves II-XII grossly intact, normal speech, moves all 4 extremities. Differential diagnoses: Reactive airway disease, pneumonia, pneumothorax, COPD, CHF, infections, cardiac ischemia, pulmonary embolism, musculoskeletal, gastrointestinal, as well as other pathologies. Course: Patient was seen and evaluated the bedside. Full history physical exam was performed. EKG interpreted by me Sinus tachycardia, rate of 113, normal intervals normal axis no ST elevations or T WI Imaging Studies: See Below Cardiac monitoring: An order was placed for continuous cardiac monitoring. The monitor shows a rate of 115 with tachycardic and regular rhythm. Past Med/Surg History Medical History Asthma Cerebral palsy Depression History of pulmonary embolism HTN (hypertension) Influenza A Pneumonia Pre-diabetes SIRS (systemic inflammatory response syndrome) Tobacco use Surgical History History of endoscopic sinus surgery History of right shoulder replacement History of surgery on wrist History of total knee replacement (TKR) also with revision Dr. Akbar Family History Mother Hypertension Stroke Father Leukemia Social History Smoking Status: Never smoker Tobacco Type: Cigarettes and Smokeless Tobacco (Dip or Chew) Hx Alcohol Use: Yes Alcohol type: beer Hx Substance Use: No Preferred Language: Yakut Communication Ability: Effective Government Documents Librarian Required: No Beliefs That Will Affect Care: None marital status: Single Current Living Situation: Family Current Living Situation Comment: lives w son Feels Safe at Home: Yes Assistive Devices: None Allergies Allergies Allergy/AdvReac Type Severity Reaction Status Date / Time FARIDEH Inhibitors AdvReac Unknown cough per Verified 10/05/22 14:36 PCP records Home Meds Home Medications Medication Instructions Recorded Confirmed albuterol sulfate 90 mcg/actuation 90 mcg inhalation Q4H PRN 03/23/21 10/05/22 aerosol inhaler Shortness Of Breath amlodipine 5 mg tablet 5 mg PO DAILY 03/23/21 10/05/22 budesonide-formoterol HFA 160 2 inh inhalation UD 03/23/21 10/05/22 mcg-4.5 mcg/actuation aerosol inhaler (Symbicort) metoprolol succinate 25 mg 25 mg PO DAILY 03/23/21 10/05/22 tablet,extended release 24 hr rivaroxaban 20 mg tablet (Xarelto) 20 mg PO DAILY 10/05/22 10/05/22 Previous Rx's Medication Instructions Recorded benzonatate 100 mg capsule 100 mg PO TID PRN Cough #20 caps 03/25/21 (Betzaida Swift) fluticasone propionate 50 2 spray NA DAILY #1 inhaler 03/25/21 mcg/actuation nasal spray,suspension hydrochlorothiazide 25 mg tablet 25 mg PO QAM #30 tabs 03/25/21 pantoprazole 40 mg tablet,delayed 40 mg PO DAILY #30 tabs 03/25/21 release tramadol 50 mg tablet 50 mg PO Q8H PRN pain #10 tabs 03/25/21 Results & Data (ED) Vital Signs Vital Signs - 24 hr 10/05/22 12:03 Temperature 37.3 C Temperature Source Temporal Artery Scan Pulse Rate 147 H Respiratory Rate 18 Respiratory Effort / Characteristics Non-Labored Spontaneous Respiratory Depth Normal Respiratory Pattern Regular Blood Pressure 110/70 Blood Pressure Mean 83 Blood Pressure Position Sitting Pulse Oximetry 94 Oxygen Delivery Method Room Air Sepsis Recent Fever Within 48 Hours No Sepsis New/Unexplained Change in Mental Status No Sepsis Action Taken by Nursing No Action Required Home Medications Current Medication List: was personally reviewed by me Laboratory Data Attestation: I reviewed the patient's lab results. Result diagrams: 10/07/22 07:18 10/07/22 07:18 Lab Results 10/05/22 10/05/22 10/05/22 Range/Units 12:20 12:20 12:20 WBC 10.37 (4.8-10.8) K/ul RBC 4.76 (4.63-6.08) M/uL Hgb 14.3 (14.0-18.0) g/dl Hct 41.8 (40.1-51.0) % MCV 87.8 (80.0-100.0) fL MCH 30.0 (25.0-34.0) pg MCHC 34.2 (32.0-36.0) g/dL RDW Std Deviation 42.3 (36.4-46.3) fL RDW Coeff of Lorie 13.2 (11.5-14.5) % Plt Count 222 (130-400) K/uL MPV 9.0 L (9.4-12.4) fL Immature Gran % (Auto) 0.4 % Neut % (Auto) 73.1 % Lymph % (Auto) 19.6 % Waller % (Auto) 6.6 % Eos % (Auto) 0.0 % Baso % (Auto) 0.3 % Neut # (Auto) 7.59 H (1.4-6.5) K/uL Lymph # (Auto) 2.03 (1.2-3.4) K/uL Waller # (Auto) 0.68 (0.24-0.82) K/uL Eos # (Auto) 0.00 (0-0.50) K/uL Baso # (Auto) 0.03 (0-0.2) K/uL Immature Gran # (Auto) 0.04 H (0.00-0.02) K/uL Sodium 136 (136-145) mmol/L Potassium 3.6 (3.5-5.1) mmol/L Chloride 96 L (98-107) mmol/L Carbon Dioxide 30 (21-32) mmol/L Anion Gap 10 (3-11) BUN 28 H (6-23) mg/dl Creatinine 1.18 (0.6-1.4) mg/dl Est Cr Clr Drug Dosing 75.8 ml/min Est GFR ( Amer) 73.6 ml/min Est GFR (Non-Af Amer) 63.5 ml/min BUN/Creatinine Ratio 23.7 H (10-20) Glucose 173 H (70-99(Fasting)) mg/dl Lactate 1.7 (0.4-2.0) mmol/L Calcium 9.0 (8.5-10.1) mg/dl Magnesium 2.4 (1.7-2.4) mg/dl Total Bilirubin 1.3 H (0.2-1.0) mg/dl AST 44 H (13-39) U/L ALT 25 (7-52) U/L Alkaline Phosphatase 73 (34-104) U/L Troponin I High Sens (0-20) pg/ml Total Protein 7.9 (6.0-8.3) gm/dl Albumin 3.9 (3.4-5.0) gm/dl Globulin 4.0 (2.5-4.0) gm/dl Albumin/Globulin Ratio 1.0 (0.9-2) Triglycerides (0-150) mg/dl Cholesterol (0-200) mg/dl LDL Cholesterol, Calc mg/dl VLDL Cholesterol, Calc (0-30) mg/dl HDL Cholesterol mg/dl Cholesterol/HDL Ratio (0-5) Procalcitonin (0-0.5) ng/ml Nasal Screen MRSA (PCR) (Negative) SARS-CoV-2 (PCR) (Negative) Influenza Type A (PCR) (Neg) Influenza Type B (PCR) (Neg) RSV (RT-PCR) (Neg) 10/05/22 10/05/22 10/05/22 Range/Units 12:20 12:20 12:20 WBC (4.8-10.8) K/ul RBC (4.63-6.08) M/uL Hgb (14.0-18.0) g/dl Hct (40.1-51.0) % MCV (80.0-100.0) fL MCH (25.0-34.0) pg MCHC (32.0-36.0) g/dL RDW Std Deviation (36.4-46.3) fL RDW Coeff of Lorie (11.5-14.5) % Plt Count (130-400) K/uL MPV (9.4-12.4) fL Immature Gran % (Auto) % Neut % (Auto) % Lymph % (Auto) % Waller % (Auto) % Eos % (Auto) % Baso % (Auto) % Neut # (Auto) (1.4-6.5) K/uL Lymph # (Auto) (1.2-3.4) K/uL Waller # (Auto) (0.24-0.82) K/uL Eos # (Auto) (0-0.50) K/uL Baso # (Auto) (0-0.2) K/uL Immature Gran # (Auto) (0.00-0.02) K/uL Sodium (136-145) mmol/L Potassium (3.5-5.1) mmol/L Chloride (98-107) mmol/L Carbon Dioxide (21-32) mmol/L Anion Gap (3-11) BUN (6-23) mg/dl Creatinine (0.6-1.4) mg/dl Est Cr Clr Drug Dosing ml/min Est GFR ( Amer) ml/min Est GFR (Non-Af Amer) ml/min BUN/Creatinine Ratio (10-20) Glucose (70-99(Fasting)) mg/dl Lactate (0.4-2.0) mmol/L Calcium (8.5-10.1) mg/dl Magnesium (1.7-2.4) mg/dl Total Bilirubin (0.2-1.0) mg/dl AST (13-39) U/L ALT (7-52) U/L Alkaline Phosphatase (34-104) U/L Troponin I High Sens 23.8 H (0-20) pg/ml Total Protein (6.0-8.3) gm/dl Albumin (3.4-5.0) gm/dl Globulin (2.5-4.0) gm/dl Albumin/Globulin Ratio (0.9-2) Triglycerides 138 (0-150) mg/dl Cholesterol 160 (0-200) mg/dl LDL Cholesterol, Calc 110 mg/dl VLDL Cholesterol, Calc 28 (0-30) mg/dl HDL Cholesterol 22 mg/dl Cholesterol/HDL Ratio 7.3 H (0-5) Procalcitonin 2.20 H (0-0.5) ng/ml Nasal Screen MRSA (PCR) (Negative) SARS-CoV-2 (PCR) (Negative) Influenza Type A (PCR) (Neg) Influenza Type B (PCR) (Neg) RSV (RT-PCR) (Neg) 10/05/22 10/05/22 Range/Units 12:50 12:50 WBC (4.8-10.8) K/ul RBC (4.63-6.08) M/uL Hgb (14.0-18.0) g/dl Hct (40.1-51.0) % MCV (80.0-100.0) fL MCH (25.0-34.0) pg MCHC (32.0-36.0) g/dL RDW Std Deviation (36.4-46.3) fL RDW Coeff of Lorie (11.5-14.5) % Plt Count (130-400) K/uL MPV (9.4-12.4) fL Immature Gran % (Auto) % Neut % (Auto) % Lymph % (Auto) % Waller % (Auto) % Eos % (Auto) % Baso % (Auto) % Neut # (Auto) (1.4-6.5) K/uL Lymph # (Auto) (1.2-3.4) K/uL Waller # (Auto) (0.24-0.82) K/uL Eos # (Auto) (0-0.50) K/uL Baso # (Auto) (0-0.2) K/uL Immature Gran # (Auto) (0.00-0.02) K/uL Sodium (136-145) mmol/L Potassium (3.5-5.1) mmol/L Chloride (98-107) mmol/L Carbon Dioxide (21-32) mmol/L Anion Gap (3-11) BUN (6-23) mg/dl Creatinine (0.6-1.4) mg/dl Est Cr Clr Drug Dosing ml/min Est GFR ( Amer) ml/min Est GFR (Non-Af Amer) ml/min BUN/Creatinine Ratio (10-20) Glucose (70-99(Fasting)) mg/dl Lactate (0.4-2.0) mmol/L Calcium (8.5-10.1) mg/dl Magnesium (1.7-2.4) mg/dl Total Bilirubin (0.2-1.0) mg/dl AST (13-39) U/L ALT (7-52) U/L Alkaline Phosphatase (34-104) U/L Troponin I High Sens (0-20) pg/ml Total Protein (6.0-8.3) gm/dl Albumin (3.4-5.0) gm/dl Globulin (2.5-4.0) gm/dl Albumin/Globulin Ratio (0.9-2) Triglycerides (0-150) mg/dl Cholesterol (0-200) mg/dl LDL Cholesterol, Calc mg/dl VLDL Cholesterol, Calc (0-30) mg/dl HDL Cholesterol mg/dl Cholesterol/HDL Ratio (0-5) Procalcitonin (0-0.5) ng/ml Nasal Screen MRSA (PCR) Negative (Negative) SARS-CoV-2 (PCR) NEGATIVE (Negative) Influenza Type A (PCR) Positive A* (Neg) Influenza Type B (PCR) Negative (Neg) RSV (RT-PCR) Negative (Neg) Administered Medications Discontinued Medications Acetaminophen (Acetaminophen 325 Mg Tab) 650 mg PO Q4H PRN PRN Reason: Pain or Fever Stop: 11/04/22 13:42 Last Admin: 10/07/22 06:31 Dose: 650 mg Documented By: TNK Albuterol (Albut/Ipratrop 3mg/0.5mg Neb 3 Ml Vial) 6 ml INH NOW STA Stop: 10/05/22 12:18 Last Admin: 10/05/22 12:37 Dose: 6 ml Documented By: K Albuterol (Albuterol 0.083% Nebu Soln 3 Ml Vial) 2.5 mg NEB Q6R MATTEO; Protocol Stop: 11/04/22 16:59 Last Admin: 10/05/22 18:23 Dose: Not Given Documented By: Admin: 10/05/22 17:38 Dose: 2.5 mg Documented By: MARRY Albuterol (Albuterol Hfa 8 Gm Inhaler) 2 puffs INH Q4H PRN PRN Reason: Shortness Of Breath Stop: 11/04/22 14:46 Last Admin: 10/05/22 15:54 Dose: 2 puffs Documented By: KATIE Albuterol (Albut/Ipratrop 3mg/0.5mg Neb 3 Ml Vial) 3 ml NEB QIDR MATTEO; Protocol Stop: 11/05/22 10:59 Last Admin: 12/24/22 10:47 Dose: 3 ml Documented By: Admin: 10/07/22 07:33 Dose: Not Given Documented By: Admin: 10/06/22 19:50 Dose: Not Given Documented By: Admin: 10/06/22 15:49 Dose: 3 ml Documented By: Admin: 10/06/22 13:26 Dose: Not Given Documented By: TONNY Amlodipine Besylate (Amlodipine Besylate 5 Mg Tab) 5 mg PO DAILY [facility] Stop: 11/04/22 14:59 Last Admin: 10/06/22 09:11 Dose: 5 mg Documented By: Admin: 10/05/22 15:53 Dose: 5 mg Documented By: KATIE Azithromycin (Azithromycin 250 Mg Tab) 500 mg PO QAM [facility] Stop: 10/08/22 08:59 Last Admin: 10/07/22 09:53 Dose: 500 mg Documented By: Admin: 10/06/22 10:33 Dose: 500 mg Documented By: TIN Benzonatate (Benzonatate 100 Mg Capsule) 100 mg PO TID PRN PRN Reason: Cough Stop: 11/04/22 14:46 Last Admin: 10/06/22 20:40 Dose: 100 mg Documented By: Admin: 10/05/22 20:09 Dose: 100 mg Documented By: KATIE Budesonide (Budesonide 0.5 Mg/2 Ml Vial (Pulmicort)) 0.5 mg NEB BIDR [facility] Stop: 11/05/22 18:59 Last Admin: 10/07/22 07:33 Dose: 0.5 mg Documented By: Admin: 10/06/22 19:50 Dose: 0.5 mg Documented By: KAVON Cefepime HCl (Cefepime 2,000 Mg/20 Ml Vial) Confirm Administered Dose 2,000 mg .ROUTE .STK-MED ONE Stop: 10/05/22 20:08 Last Admin: 10/05/22 20:08 Dose: Not Given Documented By: KATIE Fluticasone Propionate (Fluticasone Propionate Na Spr 16 Gm Btl) 2 sprays NA DAILY [facility] Stop: 11/04/22 14:59 Last Admin: 10/07/22 09:53 Dose: 2 sprays Documented By: Admin: 10/06/22 09:12 Dose: 2 sprays Documented By: Admin: 10/05/22 15:55 Dose: 2 sprays Documented By: KATIE Fluticasone/Vilanterol (Fluticasone/Vilanterol 200/25mcg 14 Puffs/Inhaler) 1 puffs INH DAILY [facility] Stop: 11/04/22 15:14 Last Admin: 10/06/22 09:12 Dose: 1 puffs Documented By: Admin: 10/05/22 15:54 Dose: 1 puffs Documented By: KATIE Formoterol Fumarate (Formoterol 20 Mcg/2 Ml Vial) 20 mcg NEB BIDR [facility] Stop: 11/05/22 18:59 Last Admin: 10/07/22 07:33 Dose: 20 mcg Documented By: Admin: 10/06/22 19:48 Dose: 20 mcg Documented By: KAVON Hydrochlorothiazide (Hydrochlorothiazide 25 Mg Tab) 25 mg PO QAM [facility] Stop: 11/04/22 14:59 Last Admin: 10/07/22 09:54 Dose: 25 mg Documented By: Admin: 10/06/22 09:12 Dose: 25 mg Documented By: Admin: 10/05/22 15:54 Dose: 25 mg Documented By: KATIE Sodium Chloride (Nss 1000ml) 1,000 mls @ 999 mls/hr IV .Q1H1M [facility] Stop: 10/05/22 13:30 Last Infusion: 10/05/22 13:39 Dose: 0 mls/hr Documented By: Admin: 10/05/22 12:39 Dose: 999 mls/hr Documented By: HUGH Cefepime HCl (Maxipime) 2,000 mg in 20 mls @ 5 mls/min IV NOW STA; Protocol Stop: 10/05/22 12:22 Last Admin: 10/05/22 12:45 Dose: 5 mls/min Documented By: HUGH Sodium Chloride (Nss) 500 mls @ 999 mls/hr IV .Q31M ONE Stop: 10/05/22 13:53 Last Infusion: 10/05/22 14:51 Dose: 0 mls/hr Documented By: Admin: 10/05/22 13:44 Dose: 999 mls/hr Documented By: KWESI Azithromycin 500 mg/ Dextrose 255 mls @ 125 mls/hr IV DAILY [facility] Stop: 10/12/22 14:59 Last Infusion: 10/05/22 18:11 Dose: 0 mls/hr Documented By: Admin: 10/05/22 15:52 Dose: 125 mls/hr Documented By: KATIE Cefepime HCl 2,000 mg/ Syringe 20 mls @ 5 mls/min IV Q8H [facility]; Protocol Stop: 10/12/22 20:59 Last Admin: 10/06/22 13:43 Dose: 5 mls/min Documented By: Admin: 10/06/22 04:47 Dose: 5 mls/min Documented By: Admin: 10/05/22 20:10 Dose: 5 mls/min Documented By: KATIE Ceftriaxone Sodium 2,000 mg/ (Dextrose) 70 mls @ 100 mls/hr IV Q24H [facility]; Protocol Stop: 10/13/22 13:59 Last Infusion: 10/06/22 15:12 Dose: 0 mls/hr Documented By: Admin: 10/06/22 14:28 Dose: 100 mls/hr Documented By: HOLLEY Melatonin (Melatonin 3 Mg Tab) 3 mg PO HS PRN PRN Reason: Sleep Stop: 11/05/22 20:50 Last Admin: 10/06/22 23:54 Dose: 3 mg Documented By: NAYA Methylprednisolone (Methylprednisolone 125 Mg/2 Ml Vial) 125 mg IV NOW STA Stop: 10/05/22 12:18 Last Admin: 10/05/22 12:36 Dose: 125 mg Documented By: HUGH Metoprolol Succinate (Metoprolol Succ 25mg Ext Rel Tab) 25 mg PO DAILY [facility] Stop: 11/04/22 14:59 Last Admin: 10/07/22 09:54 Dose: 25 mg Documented By: Admin: 10/06/22 09:11 Dose: Not Given Documented By: Admin: 10/05/22 15:53 Dose: 25 mg Documented By: KATIE Oseltamivir Phosphate (Oseltamivir Phosphate 6 Mg/Ml Susp) 75 mg PO BID [facility]; Protocol Stop: 10/07/22 12:00 Last Admin: 10/07/22 09:54 Dose: 75 mg Documented By: Admin: 10/06/22 20:40 Dose: 75 mg Documented By: Admin: 10/06/22 09:10 Dose: 75 mg Documented By: Admin: 10/05/22 20:08 Dose: 75 mg Documented By: KATIE Pantoprazole Sodium (Pantoprazole 40 Mg Tab) 40 mg PO DAILY [facility] Stop: 11/05/22 08:59 Last Admin: 10/07/22 09:54 Dose: 40 mg Documented By: Admin: 10/06/22 09:11 Dose: 40 mg Documented By: TIN Potassium Chloride (Potassium Chloride Crtab 20 Meq Tabcr) 40 meq PO NOW STA Stop: 10/06/22 09:01 Last Admin: 10/06/22 10:34 Dose: 40 meq Documented By: TIN Prednisone (Prednisone 20 Mg Tab) 40 mg PO DAILY [facility] Stop: 10/09/22 13:59 Last Admin: 10/07/22 09:54 Dose: 40 mg Documented By: Admin: 10/06/22 16:01 Dose: 40 mg Documented By: HOLLEY Rivaroxaban (Rivaroxaban 20 Mg Tab) 20 mg PO QDD [facility] Stop: 11/04/22 14:59 Last Admin: 10/06/22 16:00 Dose: 20 mg Documented By: Admin: 10/05/22 15:54 Dose: 20 mg Documented By: KATIE Sodium Chloride (Sodium Chlor 7% 4 Ml Neb) 4 ml NEB BIDR [facility] Stop: 11/05/22 18:59 Last Admin: 10/06/22 19:48 Dose: 4 ml Documented By: KAVON Tramadol HCl (Tramadol Hcl 50 Mg Tablet) 50 mg PO Q8H PRN PRN Reason: pain Stop: 11/04/22 14:46 Last Admin: 10/05/22 20:09 Dose: 50 mg Documented By: KATIE Imaging Data Radiologist's Impression: Chest X-Ray 10/05/22 12:17 XR chest 1V portable HISTORY: 67 years-old Male Dyspnea acute shortness of breath COMPARISON: 03/24/2021 TECHNIQUE: AP view of the chest FINDINGS: Cardiac silhouette is enlarged. Moderate right hemidiaphragmatic elevation. Atherosclerosis of the aorta. Pulmonary vascular congestion. Trace pleural effusions with mild bibasilar opacities. No pneumothorax. Degenerative changes of the spine. Right shoulder arthroplasty. IMPRESSION: 1. Cardiomegaly with pulmonary vascular congestion. 2. Probable trace pleural effusions with mild bibasilar atelectasis. 3. Chronic right hemidiaphragmatic elevation. ACT 112: Negative or not required by law. The above report was generated using voice recognition software. It may contain grammatical, syntax or spelling errors. Electronically signed by: Bart Ashton M.D. 10/05/2022 12:55 PM Discharge Plan Visit Data Chief Complaint: Illness Stated Complaint: REFERRED BY DOCTOR, CHEST PAIN, COUGH ED Provider: Christopher Cummings Discharge Problem: SIRS (systemic inflammatory response syndrome), Influenza A, Restrictive lung disease, Sinus tachycardia Patient Disposition: Admitted As Inpatient Discharge Instructions Interventions: ED Discharge Assessment Last Done: 10/05/22 16:21
[2022-10-05] MEDS ORDERED: ALBUT/IPRATROP 3MG/0.5MG NEB 3 ML VIAL INH STA (12:17)
[2022-10-05] MEDS ORDERED: methylPREDNISolone 125 MG/2 ML VIAL IV STA (12:17)
[2022-10-05] MEDS ORDERED: CEFEPIME 2,000 MG/20 ML VIAL IV STA (12:19)
[2022-10-05] MEDS ORDERED: SODIUM CHLORIDE 0.9% 1000ML 1,000 ML IV SCH (12:30)
[2022-10-05 12:34] LABS: Hematocrit (blood only) 41.8 % (40.1-51.0); Hemoglobin 14.3 g/dl (14.0-18.0); Mean Corpuscular Hgb Conc 34.2 g/dL (32.0-36.0); Mean Corpuscular Volume 87.8 fL (80.0-100.0); Platelet Count 222 K/uL (130-400); RDW Coefficient of Variation 13.2 % (11.5-14.5); RDW Standard Deviation 42.3 fL (36.4-46.3); Red Blood Count 4.76 M/uL (4.63-6.08); White Blood Count 10.37 K/ul (4.8-10.8)
--- NOTE | 2022-10-05 12:56 | XRay Report ---
XR chest 1V portable HISTORY: 67 years-old Male Dyspnea acute shortness of breath COMPARISON: 03/24/2021 TECHNIQUE: AP view of the chest FINDINGS: Cardiac silhouette is enlarged. Moderate right hemidiaphragmatic elevation. Atherosclerosis of the ao rta. Pulmonary vascular congestion. Trace pleural effusions with mild bibasilar opacities. No pneumot horax. Degenerative changes of the spine. Right shoulder arthroplasty. IMPRESSION: 1. Cardiomegaly with pulmonary vascular congestion. 2. Probable trace pleural effusions with mild bibasilar atelectasis. 3. Chronic right hemidiaphragmatic elevation. ACT 112: Negative or not required by law. The above report was generated using voice recognition software. It may contain grammatical, syntax o r spelling errors. Electronically signed by: Bart Ashton M.D. 10/05/2022 12:55 PM
[2022-10-05 12:57] LABS: Basophils # (auto) 0.03 K/uL (0-0.2); Basophils % (auto) 0.3 %; Immature Granulocytes # (auto) 0.04 K/uL (0.00-0.02); Immature Granulocytes % (auto) 0.4 %; Lymphocytes # (auto) 2.03 K/uL (1.2-3.4); Lymphocytes % (auto) 19.6 %; Monocytes # (auto) 0.68 K/uL (0.24-0.82); Monocytes % (auto) 6.6 %; Neutrophils # (auto) 7.59 K/uL (1.4-6.5); Neutrophils % (auto) 73.1 %
[2022-10-05 13:04] LABS: Albumin Level 3.9 gm/dl (3.4-5.0); BUN Creatinine Ratio 23.7 (10-20); Bilirubin,Total 1.3 mg/dl (0.2-1.0); Creatinine Clr Calc Pharmacy 75.8 ml/min; Est GFR (African American) 73.6 ml/min; Est GFR (Non-African American) 63.5 ml/min; Magnesium 2.4 mg/dl (1.7-2.4); Potassium 3.6 mmol/L (3.5-5.1); Total Protein 7.9 gm/dl (6.0-8.3)
[2022-10-05] MEDS ORDERED: SODIUM CHLORIDE 0.9% 500 ML IV ONE (13:23)
--- NOTE | 2022-10-05 13:42 | History & Physical Report ---
Date of Service October 05, 2022 Assessment & Plan (1) SIRS (systemic inflammatory response syndrome): (2) Influenza A: (3) Chronic cough: (4) Tobacco use: (5) History of pulmonary embolism: (6) HTN (hypertension): (7) Depression: Plan 67 y/o with SIRS and influenza A. Significant restrictive lung disease and history of PE. Pro-Denny 2.2, WBC 10.3, lactic acid 1.0, troponin 23.8. Started on oseltamivir. O2 for support. Continue home meds. SIRS in setting of influenza A: Symptoms x5 days. Risk versus benefit discussed with patient; Patient receptive to oseltamivir x5 days Procalcitonin 2.20 WBC 10.37 Lactic acid 1.0 nebulizer tx Troponin 23.8; will recheck x 1 Asthma: Restrictive Lung Disease: Chronic Cough: Tobacco Use: Pulmonary consultation last admission: Betzaida Swift as needed Does not appear that he has had consistent follow-up with OPT pulm; assist with follow-up as outpatient Follows Dr. Hopson OPT; admits to not seen him in more than 1 year Takes Gabapentin for this; continue Consider pulmonary consultation. Inappropriate sinus tachycardia: Noted in outpatient provider notes Patient with tachycardia in ED; 115-140 History of PE: Last admission 03/20/22 On Eloquis (compliant). unknown instigator of PE Spastic hemiplegic Cerebral Palsy: Does not follow with Neurology. States that his weakness has worsened over the past few years. Assist with establishing OPT f/u upon discharge. Altered gait Patient states this has been worsening; denies loss of bowel and bladder function PT/OT HTN: Takes metoprolol, losartan, amlodipine, hydrochlorothiazide; continue HLD: Takes rosuvastatin; continue Lipid panel in a.m. Disposition: PCP: Dr. Martinez Code Status: Full Code VTE Prophylaxis: On Eloquis I personally was able to review all current laboratory work and diagnostic images obtained in the ED. Additionally, I was able to review the patients past medication reconciliation and history with direct visualization in the patients chart. This patient was seen in collaboration with Dr. Estrada. Please see her addendum for further details. History of Present Illness Chief Complaint: cough Primary Care Provider: Berlin Martinez MD Mr. Glover is a 65-year-old male who has significant past medical history of prediabetes, HTN, asthma, restrictive lung disease, morbid obesity, depression, cerebral palsy, tobacco use. He was recently admitted from March 20- for a PE. He follows with Dr. Hopson at the [facility] pulmonary clinic for chronic cough, asthma and RLD. CT angiogram was performed as an outpatient which showed subsegmental filling defects which led to him being seen in the ED in March. ECHO at that time showed EF of 55 to 60% right ventricle was normal in size and normal RV function. Outpatient documentation indicates inappropriate sinus tachycardia which does not match his ED presentation CXR trace pleural effusions with mild bibasilar atelectasis and pulmonary vascular congestion. Elevated procalcitonin. Patient states that he works at [employer] in the [employer] mail [employer]. and yesterday had a fall that was witnessed. Patient believes that this is related to his worsening cerebral palsy. Patient denies hitting his head or LOC. Patient denies headache, dizziness, chest pain, palpitations, nausea vomiting diarrhea, sitting upright in his hospital bed appears weak and dyspneic with conversation. Patient became hypoxic with conversation placed on 2 L with resolution. Patient with wheezes. Patient receptive to admission for further evaluation and management. Please see A/P for further details. Allergies Allergy/AdvReac Type Severity Reaction Status Date / Time FARIDEH Inhibitors AdvReac Unknown cough per Verified 10/05/22 14:36 PCP records Home Medications Medication Instructions Recorded Confirmed Type albuterol sulfate 90 mcg/actuation 90 mcg inhalation Q4H PRN 03/23/21 10/05/22 History aerosol inhaler Shortness Of Breath amlodipine 5 mg tablet 5 mg PO DAILY 03/23/21 10/05/22 History budesonide-formoterol HFA 160 2 inh inhalation UD 03/23/21 10/05/22 History mcg-4.5 mcg/actuation aerosol inhaler (Symbicort) metoprolol succinate 25 mg 25 mg PO DAILY 03/23/21 10/05/22 History tablet,extended release 24 hr benzonatate 100 mg capsule 100 mg PO TID PRN Cough #20 caps 03/25/21 10/05/22 Rx (Betzaida Swift) fluticasone propionate 50 2 spray NA DAILY #1 inhaler 03/25/21 10/05/22 Rx mcg/actuation nasal spray,suspension hydrochlorothiazide 25 mg tablet 25 mg PO QAM #30 tabs 03/25/21 10/05/22 Rx pantoprazole 40 mg tablet,delayed 40 mg PO DAILY #30 tabs 03/25/21 10/05/22 Rx release tramadol 50 mg tablet 50 mg PO Q8H PRN pain #10 tabs 03/25/21 10/05/22 Rx rivaroxaban 20 mg tablet (Xarelto) 20 mg PO DAILY 10/05/22 10/05/22 History Past Med/Surg History Medical History Asthma Cerebral palsy Depression History of pulmonary embolism HTN (hypertension) Influenza A Pneumonia Pre-diabetes SIRS (systemic inflammatory response syndrome) Tobacco use Surgical History History of endoscopic sinus surgery History of right shoulder replacement History of surgery on wrist History of total knee replacement (TKR) also with revision Dr. 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 Beliefs That Will Affect Care: None marital status: Single Current Living Situation: Family Current Living Situation Comment: lives w son Feels Safe at Home: Yes Safety Concerns: Feels Safe At This Time Assistive Devices: None Review of Systems Review of Systems: Neuro: (-) Falls, trauma, slurred speech HEENT: (-) SCHULTZ, dizziness, dysphagia, visual or auditory changes CV: (-) CP, palpitations, swelling Resp: (-) SOB GI: (-) appetite changes, N/V/D, bowel changes : (-) urinary changes Skin: (-) rashes Psych: (-) anxiety, depression Physical Exam Physical Exam: Neuro: AAOx4, PERRLA, no aphagia, memory changes, CNII-XII grossly intact, + fatigue HEENT: head normocephalic, moist mucus membranes CV: S1/S2, tachycardic, (-) M/G/R, trace edema BL LE, cap refill < 3 seconds Resp: Lungs I/E wheezes in all issa. On 2LNC GI: Abdomen large/S/NT/ND, Ax4 bowel sounds, (-) CVA tenderness Musculoskeletal: 5/5 B/L UE strength, 5/5 B/L LE strength. No gait disturbance Skin: (-) rashes , (-) erythema. Psych: euthymic mood Results & Data Results & Data ([facility]) Vital Signs (Past 12 Hours) Vital Signs Temp Pulse Resp BP Pulse Ox O2 Del Method 10/05/22 13:05 113 H 24 91 Room Air 10/05/22 12:03 37.3 C 147 H 18 110/70 94 Room Air Laboratory Results Short CBC 10/05/22 Range/Units 12:20 WBC 10.37 (4.8-10.8) K/ul Hgb 14.3 (14.0-18.0) g/dl Hct 41.8 (40.1-51.0) % Plt Count 222 (130-400) K/uL BMP 10/05/22 12:20 Sodium 136 Potassium 3.6 Chloride 96 L Carbon Dioxide 30 BUN 28 H Creatinine 1.18 Glucose 173 H Calcium 9.0 Liver Function 10/05/22 Range/Units 12:20 Total Bilirubin 1.3 H (0.2-1.0) mg/dl AST 44 H (13-39) U/L ALT 25 (7-52) U/L Alkaline Phosphatase 73 (34-104) U/L Albumin 3.9 (3.4-5.0) gm/dl Diagnostic Findings Chest X-Ray 10/05/22 12:17 XR chest 1V portable HISTORY: 67 years-old Male Dyspnea acute shortness of breath COMPARISON: 03/24/2021 TECHNIQUE: AP view of the chest FINDINGS: Cardiac silhouette is enlarged. Moderate right hemidiaphragmatic elevation. Atherosclerosis of the aorta. Pulmonary vascular congestion. Trace pleural effusions with mild bibasilar opacities. No pneumothorax. Degenerative changes of the spine. Right shoulder arthroplasty. IMPRESSION: 1. Cardiomegaly with pulmonary vascular congestion. 2. Probable trace pleural effusions with mild bibasilar atelectasis. 3. Chronic right hemidiaphragmatic elevation. ACT 112: Negative or not required by law. The above report was generated using voice recognition software. It may contain grammatical, syntax or spelling errors. Electronically signed by: Bart Ashton M.D. 10/05/2022 12:55 PM Code Status & VTE Plan Code Status Full code in the event of cardiac or respiratory arrest VTE Prophylaxis Plan VTE Prophylaxis will be ordered: Yes Supervising Physician Co-Signing Physician Notes cannot copy and paste addendum from dictation clipboard. See supplemental communication note. Also of note is his persistent tachycardia. With active wheezing, I am hesitant to increase his beta roshan. He has had a significant amount of fluid in setting of pulmonary congestion. Cont to monitor and will hold neb treatments overnight to see if this helps lower his heart rate. sms
[2022-10-05] MEDS ORDERED: ALUMINUM/MAGNESIUM SUSP 30 ML UDC PO PRN (13:43)
[2022-10-05] MEDS ORDERED: MAGNESIUM HYDROXIDE SUSP 30 ML UDC PO PRN (13:43)
[2022-10-05] MEDS ORDERED: POLYETHYLENE (MIRALAX) 17 GM PACK PO PRN (13:43)
[2022-10-05] MEDS ORDERED: ONDANSETRON INJ 2 MG/ML 2 ML VIAL IV PRN (13:43)
[2022-10-05] MEDS ORDERED: ACETAMINOPHEN 325 MG TAB PO PRN (13:43)
[2022-10-05 14:20] LABS: Influenza B virus by PCR Negative (Neg); RSV by PCR Negative (Neg); SARS CoV2 RNA(COVID-19) Ceph NEGATIVE (Negative)
[2022-10-05 14:24] LABS: Influenza A virus by PCR Positive (Neg)
[2022-10-05 14:44] LABS: Chol HDL Ratio 7.3 (0-5)
[2022-10-05] MEDS ORDERED: traMADol HCL 50 MG TABLET PO PRN (14:47)
[2022-10-05] MEDS ORDERED: ALBUTEROL HFA 8 GM INHALER INH PRN (14:47)
[2022-10-05] MEDS ORDERED: AZITHROMYCIN 500 MG in DEXTROSE 5% 250 ML IV SCH (15:00)
[2022-10-05] MEDS ORDERED: BUDESONIDE/FORMOTEROL FUMARATE 160/4.5 60 PUFFS/INHALER INH SCH (15:00)
[2022-10-05] MEDS: amLODIPine BESYLATE 5 MG TAB PO SCH (15:53)
[2022-10-05] MEDS: METOPROLOL SUCC 25MG EXT REL TAB PO SCH (15:53)
[2022-10-05] MEDS: FLUTICASONE/VILANTEROL 200/25MCG 14 PUFFS/INHALER INH SCH (15:54)
[2022-10-05] MEDS: RIVAROXABAN 20 MG TAB PO SCH (15:54)
[2022-10-05] MEDS: hydroCHLOROthiazide 25 MG TAB PO SCH (15:54)
[2022-10-05] MEDS: FLUTICASONE PROPIONATE NA SPR 16 GM BTL SCH (15:55)
[2022-10-05] MEDS: ALBUTEROL 0.083% NEBU SOLN 3 ML VIAL NEB SCH ×2 (17:38→18:23)
[2022-10-05] MEDS ORDERED: CEFEPIME 2,000 MG/20 ML VIAL ONE (20:07)
[2022-10-05] MEDS: OSELTAMIVIR PHOSPHATE 6 MG/ML SUSP PO SCH (20:08)
[2022-10-05] MEDS: BENZONATATE 100 MG CAPSULE PO PRN (20:09)
[2022-10-05] MEDS: CEFEPIME 2,000 MG in SYRINGE 0 ML IV SCH (20:10)
--- NOTE | 2022-10-05 20:12 | Communication Note ---
Date of Service October 05, 2022 I have seen and examined the patient and have discussed the case with GABRIELLE Gilliland. I agree with the assessment and plan as stated. 65-year-old man with a history of inappropriate sinus tachycardia presents with worsening shortness of breath for the past week. He had a fall yesterday without significant trauma and has noticed some wheezing. Today he is requiring 2 L/min of oxygen which is new for him. He has been around granddaughters who have been ill in the last couple of weeks. Work-up today reveals he is positive for influenza A. On physical exam he demonstrates no increased respiratory distress. Lungs are wheezy throughout. Cardiac exam is unremarkable. He does have trace lower extremity edema on the left lower extremity. Abdomen is protuberant, soft, nontender nondistended. He has no gross focal deficits in his muscular or neurologic systems. Skin is warm and dry. Work-up today reveals a CBC within normal limits. BMP is also within normal limits. Lactate is 1.7 with repeat of 1.0. Magnesium is within normal limits. AST mildly elevated at 44, ALT 25, total bilirubin 1.3. There is no evidence of jaundice. Troponin is 23.8. Procalcitonin is elevated at 2.2. Flu and COVID are negative. On imaging chest x-ray reveals some pulmonary vascular congestion with trace pleural effusions. An EKG revealed sinus tachycardia with a heart rate of 144. He was given 1.5 L of fluid in the ER likely in response to tachycardia in setting of acute infection. He was also initially given cefepime and azithromycin and an 1 hour nebulizer treatment along with some steroids. Although he is tachycardic and PE was considered, he has been on Xarelto since March for an acute PE at that time. He also takes metoprolol succinate which was not taken this morning and has a history of inappropriate sinus tachycardia, partly explaining his elevated heart rate. Agree with consulting cardiology. Overall this is a 67-year-old smoker with influenza infection. Oseltamivir, antibiotics and supportive care with oxygen and symptom management will be continued. Of note, his pulmonary vascular congestion may be reflective of ongoing tachycardia or other underlying cardiac dysfunction. Doubt ACS but repeat echo should be considered and would hold giving additional IV fluids at this time with consideration for Lasix. Notably he is on HCTZ and this may have to be substituted. We will continue monitoring closely overnight and if oxygen saturation worsens would consider Lasix therapy and holding HCTZ. Additional management as above. DO Sean
[2022-10-05 20:32] LABS: Appearance Urine Clear (Clear); Bacteria Urine Automated Negative (Negative); Bilirubin Urine Negative (Negative); Blood Urine 1+ (Negative); Color Urine Yellow; Glucose Urine UA 1+ (Negative); Ketones Urine 1+ (Negative); Leukocyte Esterase Urine Negative (Negative); Nitrite Urine Negative (Negative); Protein Urine 1+ (Negative); RBC Urine Automated 0-4 /hpf (0-4); Specific Gravity Urine 1.022 (1.000-1.030); Urobilinogen Urine Negative (Negative); pH Urine 5.5 (4.5-7.5)
[2022-10-05] MEDS ORDERED: OSELTAMIVIR PHOSPHATE 6 MG/ML SUSP PO SCH (21:00)
[2022-10-06] MEDS: CEFEPIME 2,000 MG in SYRINGE 0 ML IV SCH ×2 (04:47→13:43)
[2022-10-06 06:09] LABS: Hematocrit (blood only) 35.6 % (40.1-51.0); Hemoglobin 12.2 g/dl (14.0-18.0); Mean Corpuscular Hgb Conc 34.3 g/dL (32.0-36.0); Mean Corpuscular Volume 87.5 fL (80.0-100.0); Mean Platelet Volume 9.1 fL (9.4-12.4); Platelet Count 218 K/uL (130-400); RDW Coefficient of Variation 13.2 % (11.5-14.5); RDW Standard Deviation 41.6 fL (36.4-46.3); Red Blood Count 4.07 M/uL (4.63-6.08); White Blood Count 5.48 K/ul (4.8-10.8)
[2022-10-06 06:37] LABS: BUN Creatinine Ratio 32.3 (10-20); Calcium 7.9 mg/dl (8.5-10.1); Creatinine Clr Calc Pharmacy 96.2 ml/min; Est GFR (African American) 98.1 ml/min; Est GFR (Non-African American) 84.6 ml/min; Magnesium 2.5 mg/dl (1.7-2.4); Potassium 3.5 mmol/L (3.5-5.1)
--- NOTE | 2022-10-06 08:44 | XRay Report ---
XR chest 1V portable HISTORY: Pneumonia. Shortness of breath. COMPARISON: Chest 10/05/2022. FINDINGS: No pneumothorax. There is chronic elevation the right hemidiaphragm. The heart remains enla rged. There are bibasilar linear densities, unchanged. There is mild pulmonary vascular congestion wi thout overt edema. Postoperative changes again noted within the right shoulder. IMPRESSION: 1. Cardiomegaly and mild congestive change persists. 2. Chronic elevation of the right hemidiaphragm bibasilar linear densities suggesting atelectasis. ACT 112: Negative or not required by law. Electronically signed by: Gerard Shore M.D. 10/06/2022 8:42 AM
--- NOTE | 2022-10-06 08:58 | Cardiology Consultation ---
Date of Consultation October 06, 2022 Assessment & Plan (1) SIRS (systemic inflammatory response syndrome): (2) Influenza A: (3) Restrictive lung disease: (4) History of pulmonary embolism: (5) HTN (hypertension): (6) Sinus tachycardia: Plan Medically complex 67 year old male with known RLD, positive for Flu A. Being treated with steroids, antibiotics, and antivirals per primary team. Asymptomatic hypotension noted this am. -CXR looks poor showing pulmonary edema, but not much different compared to previous in March. Hesitant to give IV Lasix at this time due given hypotension. -Will hold HCTZ and Norvasc today due to low BP. Continue to treat with ABX and antivirals per primary team. -Pending clinical course can consider 20-40 mg of IV Lasix. -Further recommendations pending echo results. -Patient will likely benefit from a pulmonary consultation. Supervising Physician Co-Signing Physician Notes I have seen and examined the patient. I reviewed the medical record and discussed the case with the nurse practitioner. I agree with the plan as outlined above. The patient's principal problem here is restrictive lung disease with pulmonary fibrosis and now with influenza and less cardiac. History of Present Illness Reason for Consultation: Sinus tachycardia, hypoxia, pulmonary vascular congestion on chest x-ray Requesting Physician: [facility] hospitalist Attending Physician: Jony Torres MD History of Present Illness 67-year-old male initially presented to emergency department due to shortness of breath, weakness, and a fall. New to the [facility] cardiology practice. Patient was found to be hypoxic and was placed on 2 L nasal cannula with improvement. Patient was diagnosed with SIRS in the setting of influenza A. Treated with oseltamivir. Tachycardic rates in the emergency department ranging between 115 140 bpm- patient on metoprolol succinate 25 mg daily for previous diagnosis of inappropriate sinus tachycardia dating back to at least 2018. Given 1.5 L of IV fluids in ED as well as cefepime and azithromycin with nebulizer treatments and steroids. Telemetry: NSR 70s-80s bpm Labs 10/06: Hemoglobin 12.2, renal function stable, potassium 3.5, high- sensitivity troponin 23.8 >> 15.5 Chest x-ray 10/05: Cardiomegaly with pulmonary vascular congestion and trace pleural effusions with mild bibasilar atelectasis, chronic right hemidiaph ragmatic elevation, unchanged on repeat checks x-ray 10/06. Echo: PENDING* Upon entrance into the room patient feeling poorly. Notes feeling worn out. Doesn't normally use O2 at home. Has been wearing o2 since arrival. No chest pain, notes and ongoing productive cough with shortness of breath. No dizziness, syncope. No palpitations. Poor appetite, but no nausea or vomiting. Past medical history: Hypertension-on metoprolol, losartan, hydrochlorothiazide, and Norvasc. Asthma Restrictive lung disease Prediabetes Morbid obesity Cerebral palsy Ongoing tobacco use History of PE without RV strain, 03/2022, on Eliquis. Allergies Allergy/AdvReac Type Severity Reaction Status Date / Time FARIDEH Inhibitors AdvReac Unknown cough per Verified 10/05/22 14:36 PCP records Home Medications Medication Instructions Recorded Confirmed Type albuterol sulfate 90 mcg/actuation 90 mcg inhalation Q4H PRN 03/23/21 10/05/22 History aerosol inhaler Shortness Of Breath amlodipine 5 mg tablet 5 mg PO DAILY 03/23/21 10/05/22 History budesonide-formoterol HFA 160 2 inh inhalation UD 03/23/21 10/05/22 History mcg-4.5 mcg/actuation aerosol inhaler (Symbicort) metoprolol succinate 25 mg 25 mg PO DAILY 03/23/21 10/05/22 History tablet,extended release 24 hr benzonatate 100 mg capsule 100 mg PO TID PRN Cough #20 caps 03/25/21 10/05/22 Rx (Betzaida Swift) fluticasone propionate 50 2 spray NA DAILY #1 inhaler 03/25/21 10/05/22 Rx mcg/actuation nasal spray,suspension hydrochlorothiazide 25 mg tablet 25 mg PO QAM #30 tabs 03/25/21 10/05/22 Rx pantoprazole 40 mg tablet,delayed 40 mg PO DAILY #30 tabs 03/25/21 10/05/22 Rx release tramadol 50 mg tablet 50 mg PO Q8H PRN pain #10 tabs 03/25/21 10/05/22 Rx rivaroxaban 20 mg tablet (Xarelto) 20 mg PO DAILY 10/05/22 10/05/22 History Patient History Medical History Asthma Cerebral palsy Depression History of pulmonary embolism HTN (hypertension) Influenza A Pneumonia Pre-diabetes SIRS (systemic inflammatory response syndrome) Tobacco use Surgical History History of endoscopic sinus surgery History of right shoulder replacement History of surgery on wrist History of total knee replacement (TKR) also with revision Dr. 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 Beliefs That Will Affect Care: None marital status: Single Current Living Situation: Family Current Living Situation Comment: lives w son Feels Safe at Home: Yes Safety Concerns: Feels Safe At This Time Assistive Devices: None Review of Systems Review of Systems: All systems reviewed & are unremarkable except as noted in HPI & below Physical Exam Constitutional: + ill appearing; no acute distress Eyes: PERRL, conjunctivae normal, anicteric sclerae ENMT: external ear and nose normal, oropharynx normal Neck: normal visual inspection Respiratory: + cough (productive); + abnormal respiratory effort and no respiratory distress Auscultation: + rhonchi and + wheezes Cardiovascular: Rate/Rhythm: regular rate and regular rhythm Heart Sounds: normal S1 and normal S2 Extremities: no edema Gastrointestinal (Abdomen): normal bowel sounds, soft, nontender, no hepatosplenomegaly Musculoskeletal: no cyanosis or clubbing, extremities motor strength 5/5 Skin: no rashes, warm and dry Psychiatric: A+Ox3, euthymic affect Results & Data ([facility]) Vital Signs (Past 12 Hours) Vital Signs Pulse Pulse Resp BP BP Pulse Ox O2 Del Method 10/06/22 05:00 94 H 20 136/85 93 Nasal Cannula 10/06/22 03:00 77 18 114/72 93 Room Air 10/05/22 22:20 126 H 18 94 10/05/22 22:10 132 H 22 95 10/05/22 22:00 84 22 95 10/05/22 22:00 126/83 10/05/22 21:50 82 24 95 10/05/22 21:40 84 24 96 10/05/22 21:30 89 17 95 10/05/22 21:20 84 20 96 10/05/22 21:10 85 17 96 10/05/22 21:01 84 21 95 10/05/22 21:01 115/71 10/05/22 21:00 83 24 93 10/05/22 20:50 86 19 95 O2 Flow Rate 10/06/22 05:00 2 10/06/22 03:00 10/05/22 22:20 10/05/22 22:10 10/05/22 22:00 10/05/22 22:00 10/05/22 21:50 10/05/22 21:40 10/05/22 21:30 10/05/22 21:20 10/05/22 21:10 10/05/22 21:01 10/05/22 21:01 10/05/22 21:00 10/05/22 20:50 Laboratory Results Cardiac Enzymes 10/05/22 10/05/22 10/05/22 Range/Units 12:20 12:20 20:34 AST 44 H (13-39) U/L Troponin I High Sens 23.8 H 15.5 D (0-20) pg/ml B-Natriuretic Peptide (0-100) pg/ml 10/05/22 Range/Units 20:34 AST (13-39) U/L Troponin I High Sens (0-20) pg/ml B-Natriuretic Peptide 65 (0-100) pg/ml Coagulation 10/05/22 Range/Units 20:34 B-Natriuretic Peptide 65 (0-100) pg/ml Lipids 10/05/22 Range/Units 12:20 Triglycerides 138 (0-150) mg/dl Cholesterol 160 (0-200) mg/dl HDL Cholesterol 22 mg/dl Cholesterol/HDL Ratio 7.3 H (0-5) CBC 10/05/22 10/06/22 Range/Units 12:20 05:36 WBC 10.37 5.48 (4.8-10.8) K/ul RBC 4.76 4.07 L (4.63-6.08) M/uL Hgb 14.3 12.2 L (14.0-18.0) g/dl Hct 41.8 35.6 L (40.1-51.0) % Plt Count 222 218 (130-400) K/uL Neut # (Auto) 7.59 H (1.4-6.5) K/uL Lymph # (Auto) 2.03 (1.2-3.4) K/uL [place] # (Auto) 0.68 (0.24-0.82) K/uL Eos # (Auto) 0.00 (0-0.50) K/uL Baso # (Auto) 0.03 (0-0.2) K/uL Comprehensive Metabolic Panel 10/05/22 10/06/22 Range/Units 12:20 05:36 Sodium 136 136 (136-145) mmol/L Potassium 3.6 3.5 (3.5-5.1) mmol/L Chloride 96 L 100 (98-107) mmol/L Carbon Dioxide 30 27 (21-32) mmol/L BUN 28 H 30 H (6-23) mg/dl Creatinine 1.18 0.93 (0.6-1.4) mg/dl Glucose 173 H 290 H (70-99(Fasting)) mg/dl Calcium 9.0 7.9 L (8.5-10.1) mg/dl AST 44 H (13-39) U/L ALT 25 (7-52) U/L Alkaline Phosphatase 73 (34-104) U/L Total Protein 7.9 (6.0-8.3) gm/dl Albumin 3.9 (3.4-5.0) gm/dl Intake and Output 10/05/22 10/06/22 10/06/22 22:59 06:59 14:59 Intake Total 615 / 2115 Output Total 700 / 700 Balance 615 / 1415 -700 / -700 Intake: IV 255 / 1755 Azithromycin 500 mg In Dextrose 255 / 255 5% 250 ml @ 125 mls/hr IV DAILY [facility] Rx#:[id number] Oral 360 / 360 Output: Urine 700 / 700 Other: Weight 114.5 kg Weight Measurement Method Built in [facility]
[2022-10-06] MEDS ORDERED: POTASSIUM CHLORIDE CRTAB 20 MEQ TABCR PO STA (09:00)
[2022-10-06] MEDS: OSELTAMIVIR PHOSPHATE 6 MG/ML SUSP PO SCH ×2 (09:10→20:40)
[2022-10-06] MEDS: PANTOprazole 40 MG TAB PO SCH (09:11)
[2022-10-06] MEDS: METOPROLOL SUCC 25MG EXT REL TAB PO SCH (09:11)
[2022-10-06] MEDS: amLODIPine BESYLATE 5 MG TAB PO SCH (09:11)
[2022-10-06] MEDS: FLUTICASONE/VILANTEROL 200/25MCG 14 PUFFS/INHALER INH SCH (09:12)
[2022-10-06] MEDS: hydroCHLOROthiazide 25 MG TAB PO SCH (09:12)
[2022-10-06] MEDS: FLUTICASONE PROPIONATE NA SPR 16 GM BTL SCH (09:12)
[2022-10-06] MEDS: AZITHROMYCIN 250 MG TAB PO SCH (10:33)
[2022-10-06] MEDS: ALBUT/IPRATROP 3MG/0.5MG NEB 3 ML VIAL NEB SCH ×3 (13:26→19:50)
--- NOTE | 2022-10-06 13:40 | Hospitalist Progress Note ---
Date of Service October 06, 2022 Assessment & Plan (1) SIRS (systemic inflammatory response syndrome): (2) Influenza A: (3) Chronic cough: (4) Tobacco use: (5) History of pulmonary embolism: (6) HTN (hypertension): (7) Depression: Plan 67 y/o with SIRS and influenza A. Significant restrictive lung disease and history of PE. Pro-Denny 2.2, WBC 10.3, lactic acid 1.0, troponin 23.8. Started on oseltamivir. O2 for support. Continue home meds. SIRS in setting of influenza A: Atypical pneumonia Possible acute on chronic diastolic heart failure History of obesity, restrictive lung disease, PE, diastolic heart failure, right hemidiaphragm elevation. Chest x-ray shows cardiomegaly and mild congestive changes Influenza positive Pro-Denny elevated Plan; Started on wehmt-yvs-hceea duo nebs every 6 hours. On ceftriaxone and azithromycin. Was given methylprednisolone on admission; started on oral prednisone for 4 more days Tamiflu for 5 days Cardiology recommends that patient's principal problem is restrictive lung disease. Will obtain CT without contrast. - Pulmonary toileting with hypertonic saline Budesonide and formoterol nebs Inappropriate sinus tachycardia: Noted in outpatient provider notes Sinus tachycardia on admission; improved with beta-roshan. History of PE: Last admission 03/20/21 On Xarelto. unknown instigator of PE Spastic hemiplegic Cerebral Palsy: Does not follow with Neurology. States that his weakness has worsened over the past few years. Assist with establishing OPT f/u upon discharge. Altered gait Patient states this has been worsening; denies loss of bowel and bladder function PT/OT HTN: Takes metoprolol, losartan, amlodipine, hydrochlorothiazide; continue HLD: Takes rosuvastatin; Disposition: PCP: Dr. Martinez Code Status: Full Code VTE Prophylaxis: On Xarelto Admission and Anticipated Discharge Date Admission Date: October 05, 2022 Subjective Patient seen and examined at bedside. He is comfortably sitting up; not in any distress. He is on 2 to 3 L of nasal cannula. Review of Systems Review of Systems: All systems reviewed & are unremarkable except as noted in Subjective Physical Exam Physical Exam: Constitutional: WD/WN, vitals as above, NAD, sitting up in bed, pleasant, conversing easily Respiratory: Occasional crackles heard. Cardiovascular: RRR, no murmur, no edema Vessels: no JVD or carotid bruit Chest: normal inspection of chest Abdomen: normal bowel sounds, soft, nontender, no hepatosplenomegaly Musculoskeletal: no cyanosis or clubbing, extremities motor strength 5/5 Skin: no rashes, warm and dry normal turgor Neurologic: PERRL, EOMI, accommodation nl, no face palsy, no dysarthria CN's II- XI intact bilaterally and moves all extremities Psychiatric: A+Ox3, euthymic affect Lymphatic: no cervical or axillary lymphadenopathy : deferred Results & Data Results & Data ([facility]) Vital Signs (Past 12 Hours) Vital Signs Temp Pulse Pulse Resp BP Pulse Ox O2 Del Method 10/06/22 12:04 66 10/06/22 11:20 36.6 C 79 18 132/82 93 Nasal Cannula 10/06/22 09:30 Nasal Cannula 10/06/22 09:07 36.5 C 77 18 99/86 L 94 Nasal Cannula 10/06/22 05:00 94 H 20 136/85 93 Nasal Cannula 10/06/22 03:00 77 18 114/72 93 Room Air O2 Flow Rate 10/06/22 12:04 10/06/22 11:20 3 10/06/22 09:30 3 10/06/22 09:07 3 10/06/22 05:00 2 10/06/22 03:00 Laboratory Results Laboratory Results WBC 5.48 K/ul (4.8-10.8) 10/06/22 05:36 RBC 4.07 M/uL (4.63-6.08) L 10/06/22 05:36 Hgb 12.2 g/dl (14.0-18.0) L 10/06/22 05:36 Hct 35.6 % (40.1-51.0) L 10/06/22 05:36 MCV 87.5 fL (80.0-100.0) 10/06/22 05:36 MCH 30.0 pg (25.0-34.0) 10/06/22 05:36 MCHC 34.3 g/dL (32.0-36.0) 10/06/22 05:36 RDW Std Deviation 41.6 fL (36.4-46.3) 10/06/22 05:36 RDW Coeff of Lorie 13.2 % (11.5-14.5) 10/06/22 05:36 Plt Count 218 K/uL (130-400) 10/06/22 05:36 MPV 9.1 fL (9.4-12.4) L 10/06/22 05:36 Immature Gran % (Auto) 0.4 % 10/05/22 12:20 Neut % (Auto) 73.1 % 10/05/22 12:20 Lymph % (Auto) 19.6 % 10/05/22 12:20 [place] % (Auto) 6.6 % 10/05/22 12:20 Eos % (Auto) 0.0 % 10/05/22 12:20 Baso % (Auto) 0.3 % 10/05/22 12:20 Neut # (Auto) 7.59 K/uL (1.4-6.5) H 10/05/22 12:20 Lymph # (Auto) 2.03 K/uL (1.2-3.4) 10/05/22 12:20 [place] # (Auto) 0.68 K/uL (0.24-0.82) 10/05/22 12:20 Eos # (Auto) 0.00 K/uL (0-0.50) 10/05/22 12:20 Baso # (Auto) 0.03 K/uL (0-0.2) 10/05/22 12:20 Immature Gran # (Auto) 0.04 K/uL (0.00-0.02) H 10/05/22 12:20 Sodium 136 mmol/L (136-145) 10/06/22 05:36 Potassium 3.5 mmol/L (3.5-5.1) 10/06/22 05:36 Chloride 100 mmol/L (98-107) 10/06/22 05:36 Carbon Dioxide 27 mmol/L (21-32) 10/06/22 05:36 Anion Gap 9 (3-11) 10/06/22 05:36 BUN 30 mg/dl (6-23) H 10/06/22 05:36 Creatinine 0.93 mg/dl (0.6-1.4) 10/06/22 05:36 Est Cr Clr Drug Dosing 96.2 ml/min 10/06/22 05:36 Est GFR ( Amer) 98.1 ml/min 10/06/22 05:36 Est GFR (Non-Af Amer) 84.6 ml/min 10/06/22 05:36 BUN/Creatinine Ratio 32.3 (10-20) H 10/06/22 05:36 Glucose 290 mg/dl (70-99(Fasting)) H 10/06/22 05:36 Lactate 1.0 mmol/L (0.4-2.0) 10/05/22 15:20 Calcium 7.9 mg/dl (8.5-10.1) L 10/06/22 05:36 Magnesium 2.5 mg/dl (1.7-2.4) H 10/06/22 05:36 Total Bilirubin 1.3 mg/dl (0.2-1.0) H 10/05/22 12:20 AST 44 U/L (13-39) H 10/05/22 12:20 ALT 25 U/L (7-52) 10/05/22 12:20 Alkaline Phosphatase 73 U/L (34-104) 10/05/22 12:20 Troponin I High Sens 15.5 pg/ml (0-20) D 10/05/22 20:34 B-Natriuretic Peptide 65 pg/ml (0-100) 10/05/22 20:34 Total Protein 7.9 gm/dl (6.0-8.3) 10/05/22 12:20 Albumin 3.9 gm/dl (3.4-5.0) 10/05/22 12:20 Globulin 4.0 gm/dl (2.5-4.0) 10/05/22 12:20 Albumin/Globulin Ratio 1.0 (0.9-2) 10/05/22 12:20 Triglycerides 138 mg/dl (0-150) 10/05/22 12:20 Cholesterol 160 mg/dl (0-200) 10/05/22 12:20 LDL Cholesterol, Calc 110 mg/dl 10/05/22 12:20 VLDL Cholesterol, Calc 28 mg/dl (0-30) 10/05/22 12:20 HDL Cholesterol 22 mg/dl 10/05/22 12:20 Cholesterol/HDL Ratio 7.3 (0-5) H 10/05/22 12:20 Procalcitonin 2.20 ng/ml (0-0.5) H 10/05/22 12:20 Urine Color Yellow 10/05/22 20:15 Urine Appearance Clear (Clear) 10/05/22 20:15 Urine pH 5.5 (4.5-7.5) 10/05/22 20:15 Ur Specific [place] 1.022 (1.000-1.030) 10/05/22 20:15 Urine Protein 1+ (Negative) H 10/05/22 20:15 Urine Glucose (UA) 1+ (Negative) H 10/05/22 20:15 Urine Ketones 1+ (Negative) H 10/05/22 20:15 Urine Blood 1+ (Negative) H 10/05/22 20:15 Urine Nitrite Negative (Negative) 10/05/22 20:15 Urine Bilirubin Negative (Negative) 10/05/22 20:15 Urine Urobilinogen Negative (Negative) 10/05/22 20:15 Ur Leukocyte Esterase Negative (Negative) 10/05/22 20:15 Urine WBC (Auto) 1-5 /hpf (0-5) 10/05/22 20:15 Urine RBC (Auto) 0-4 /hpf (0-4) 10/05/22 20:15 U Hyaline Cast (Auto) 1-5 /lpf (0-5) 10/05/22 20:15 U Epithel Cells (Auto) 10-20 /lpf (0-5) H 10/05/22 20:15 Urine Bacteria (Auto) Negative (Negative) 10/05/22 20:15 Nasal Screen MRSA (PCR) Negative (Negative) 10/05/22 12:50 SARS-CoV-2 (PCR) NEGATIVE (Negative) 10/05/22 12:50 Influenza Type A (PCR) Positive (Neg) A* 10/05/22 12:50 Influenza Type B (PCR) Negative (Neg) 10/05/22 12:50 RSV (RT-PCR) Negative (Neg) 10/05/22 12:50 Impressions Chest X-Ray 10/06/22 13:44 XR chest 1V portable HISTORY: Pneumonia. Shortness of breath. COMPARISON: Chest 10/05/2022. FINDINGS: No pneumothorax. There is chronic elevation the right hemidiaphragm. The heart remains enlarged. There are bibasilar linear densities, unchanged. There is mild pulmonary vascular congestion without overt edema. Postoperative changes again noted within the right shoulder. IMPRESSION: 1. Cardiomegaly and mild congestive change persists. 2. Chronic elevation of the right hemidiaphragm bibasilar linear densities suggesting atelectasis. ACT 112: Negative or not required by law. Electronically signed by: Gerard Shore M.D. 10/06/2022 8:42 AM
[2022-10-06] MEDS ORDERED: cefTRIAXone SODIUM 2,000 MG in DEXTROSE 5% 50 ML IV SCH (14:00)
[2022-10-06] MEDS ORDERED: ALBUT/IPRATROP 3MG/0.5MG NEB 3 ML VIAL NEB SCH (15:00)
[2022-10-06] MEDS ORDERED: SODIUM CHLORIDE 0.65% NA SOLN 45 ML (OCEAN) PRN (15:04)
--- NOTE | 2022-10-06 15:48 | CT Scan Report ---
CT OF THE CHEST WITHOUT IV CONTRAST CLINICAL HISTORY: Shortness of breath. Concern for pulmonary fibrosis. COMPARISON STUDY: Chest CT March 23, 2021 and chest radiograph performed earlier today. Fluoroscopic s niff test May 09, 2021. CT DOSE: 2562.28 mGy.cm TECHNIQUE: Axial images of the chest were obtained without IV contrast. Images were reviewed in the axial, sagittal, and coronal planes. IV contrast was not administered for this examination. Automat ed exposure control was utilized for the study. A dose lowering technique was utilized adhering to t he principles of ALARA. FINDINGS: No enlarged axillary, mediastinal or hilar lymph nodes are present. Moderate cardiomegaly is noted as well as coronary calcification. There is mild dilatation of the central pulmonary arterie s. There is no pericardial effusion. Moderate to marked elevation of the right hemidiaphragm is uncha nged. Subpleural right lung opacity represents atelectasis. There is no consolidation to suggest pneu monia. 2.7 cm left apical groundglass opacity is present. A few additional lingular groundglass opaci ties are noted. . A 6 mm left upper lobe nodule on image 64 of [address] of April 02, 2021. This is likely benign. Central airways are patent although lungs are suboptimally assessed due to respiratory motion. There is no honeycombing. There is no bronchiectasis. No pneumothorax or pleural effusion is present. There is no acute fracture within the visualized bony thorax. IMPRESSION: 1. A few mild groundglass opacities within left upper lobe which are nonspecific but favor an infecti ous process. No consolidation. 2. No CT evidence for interstitial lung disease. 3. Stable moderate to marked elevation of the right hemidiaphragm. 4. Moderate cardiomegaly and coronary artery calcification. ACT 112: Negative or not required by law. Electronically signed by: Johnny Boo M.D. 10/06/2022 3:45 PM
[2022-10-06] MEDS: RIVAROXABAN 20 MG TAB PO SCH (16:00)
[2022-10-06] MEDS: predniSONE 20 MG TAB PO SCH (16:01)
[2022-10-06] MEDS ORDERED: SODIUM CHLOR 7% 4 ML NEB NEB SCH (19:00)
[2022-10-06] MEDS: FORMOTEROL 20 MCG/2 ML VIAL NEB SCH (19:48)
[2022-10-06] MEDS: BUDESONIDE 0.5 MG/2 ML VIAL (PULMICORT) NEB SCH (19:50)
[2022-10-06] MEDS ORDERED: PNEUMOCOCCAL POLYSACCHARIDES 25 MCG/0.5 ML VIAL/SYR IM ONE (20:21)
[2022-10-06] MEDS: BENZONATATE 100 MG CAPSULE PO PRN (20:40)
[2022-10-06] MEDS ORDERED: MELATONIN 3 MG TAB PO PRN (20:51)
--- NOTE | 2022-10-06 22:44 | Electrocardiogram Report ---
Test Reason : Blood Pressure : / mmHG Vent. Rate : 113 BPM Atrial Rate : 113 BPM P-R Int : 150 ms QRS Dur : 084 ms QT Int : 304 ms P-R-T Axes : 047 069 053 degrees QTc Int : 416 ms Sinus tachycardia Otherwise normal ECG When compared with ECG of 25-MAR-2021 05:07, No significant change was found Confirmed by Rajeev Perez ([id number]) on 10/06/2022 10:44:22 PM Referred By: REFERRED SELF Confirmed By:Rajeev Perez
--- NOTE | 2022-10-06 22:45 | Electrocardiogram Report ---
Test Reason : Blood Pressure : / mmHG Vent. Rate : 144 BPM Atrial Rate : 144 BPM P-R Int : 120 ms QRS Dur : 092 ms QT Int : 282 ms P-R-T Axes : 000 041 -57 degrees QTc Int : 436 ms Sinus tachycardia Nonspecific ST and T wave abnormality Abnormal ECG When compared with ECG of 05-OCT-2022 12:12, ST now depressed in Inferior leads Nonspecific T wave abnormality, worse in Inferior leads Confirmed by Rajeev Perez ([id number]) on 10/06/2022 10:45:14 PM Referred By: REFERRED SELF Confirmed By:Rajeev Perez
--- NOTE | 2022-10-06 22:47 | Electrocardiogram Report ---
Test Reason : Blood Pressure : / mmHG Vent. Rate : 079 BPM Atrial Rate : 079 BPM P-R Int : 180 ms QRS Dur : 088 ms QT Int : 376 ms P-R-T Axes : 047 037 021 degrees QTc Int : 431 ms Poor data quality, interpretation may be adversely affected Normal sinus rhythm Normal ECG When compared with ECG of 05-OCT-2022 13:37, Vent. rate has decreased BY [address] no longer depressed in Inferior leads Nonspecific T wave abnormality, improved in Inferior leads Confirmed by Rajeev Perez ([id number]) on 10/06/2022 10:47:12 PM Referred By: REFERRED SELF Confirmed By:Rajeev Perez
[2022-10-07 00:49] LABS: Appearance Urine Clear (Clear); Bacteria Urine Automated Negative (Negative); Bilirubin Urine Negative (Negative); Blood Urine Negative (Negative); Color Urine Yellow; Glucose Urine UA 1+ (Negative); Ketones Urine Trace (Negative); Leukocyte Esterase Urine Negative (Negative); Nitrite Urine Negative (Negative); Protein Urine Trace (Negative); RBC Urine Automated 0-4 /hpf (0-4); Specific Gravity Urine 1.025 (1.000-1.030); Urobilinogen Urine Negative (Negative)
[2022-10-07] MEDS: BUDESONIDE 0.5 MG/2 ML VIAL (PULMICORT) NEB SCH (07:33)
[2022-10-07] MEDS: FORMOTEROL 20 MCG/2 ML VIAL NEB SCH (07:33)
[2022-10-07] MEDS: ALBUT/IPRATROP 3MG/0.5MG NEB 3 ML VIAL NEB SCH ×2 (07:33→10:47)
--- NOTE | 2022-10-07 08:04 | XRay Report ---
XR chest 1V portable CLINICAL HISTORY: Pneumonia. COMPARISON STUDY: Chest radiograph and chest CT October 06, 2022. FINDINGS: Right shoulder arthroplasty is incidentally noted. Elevation of the right hemidiaphragm is unchanged. There is no pneumothorax or pleural effusion. Linear bibasilar opacities favor atelectasis . No consolidation to suggest pneumonia. Subpleural groundglass opacities within the left upper lobe on CT are not evident on this exam. Cardiomegaly is unchanged. No evidence for pulmonary edema. IMPRESSION: 1. Cardiomegaly without evidence for pulmonary edema. 2. Chronic elevation of the right hemidiaphragm. Bibasilar opacities suggestive of atelectasis. 3. No consolidation identified. ACT 112: Negative or not required by law. Electronically signed by: Johnny Boo M.D. 10/07/2022 8:02 AM
[2022-10-07 08:16] LABS: Hemoglobin 12.2 g/dl (14.0-18.0); Mean Corpuscular Hgb Conc 33.9 g/dL (32.0-36.0); Mean Corpuscular Volume 88.7 fL (80.0-100.0); Mean Platelet Volume 9.3 fL (9.4-12.4); Platelet Count 292 K/uL (130-400); RDW Standard Deviation 42.5 fL (36.4-46.3); Red Blood Count 4.06 M/uL (4.63-6.08); White Blood Count 8.22 K/ul (4.8-10.8)
[2022-10-07 08:39] LABS: BUN Creatinine Ratio 39.8 (10-20); Calcium 8.4 mg/dl (8.5-10.1); Creatinine Clr Calc Pharmacy 107.4 ml/min; Est GFR (African American) 105.5 ml/min; Potassium 3.7 mmol/L (3.5-5.1)
[2022-10-07 08:43] LABS: Basophils # (auto) 0.01 K/uL (0-0.2); Basophils % (auto) 0.1 %; Immature Granulocytes # (auto) 0.08 K/uL (0.00-0.02); Lymphocytes # (auto) 1.28 K/uL (1.2-3.4); Lymphocytes % (auto) 15.6 %; Monocytes # (auto) 0.59 K/uL (0.24-0.82); Monocytes % (auto) 7.2 %; Neutrophils # (auto) 6.26 K/uL (1.4-6.5); Neutrophils % (auto) 76.1 %
[2022-10-07] MEDS: AZITHROMYCIN 250 MG TAB PO SCH (09:53)
[2022-10-07] MEDS: FLUTICASONE PROPIONATE NA SPR 16 GM BTL SCH (09:53)
[2022-10-07] MEDS: METOPROLOL SUCC 25MG EXT REL TAB PO SCH (09:54)
[2022-10-07] MEDS: OSELTAMIVIR PHOSPHATE 6 MG/ML SUSP PO SCH (09:54)
[2022-10-07] MEDS: hydroCHLOROthiazide 25 MG TAB PO SCH (09:54)
[2022-10-07] MEDS: predniSONE 20 MG TAB PO SCH (09:54)
[2022-10-07] MEDS: PANTOprazole 40 MG TAB PO SCH (09:54)
--- NOTE | 2022-10-07 11:05 | Electrocardiogram Report ---
Test Reason : Blood Pressure : / mmHG Vent. Rate : 076 BPM Atrial Rate : 076 BPM P-R Int : 174 ms QRS Dur : 102 ms QT Int : 406 ms P-R-T Axes : 030 043 042 degrees QTc Int : 456 ms Sinus rhythm with occasional Premature ventricular complexes Otherwise normal ECG When compared with ECG of 06-OCT-2022 10:38, Premature ventricular complexes are now Present Confirmed by Dann Hu ([id number]) on 10/07/2022 11:04:49 AM Referred By: REFERRED SELF Confirmed By:Dann Hu
--- NOTE | 2022-10-07 12:27 | Discharge Summary ---
Date of Service October 07, 2022 Admission HPI Per Admitting Provider Mr. Glover is a 65-year-old male who has significant past medical history of prediabetes, HTN, asthma, restrictive lung disease, morbid obesity, depression, cerebral palsy, tobacco use. He was recently admitted from March 20- for a PE. He follows with Dr. Hopson at the [facility] pulmonary clinic for chronic cough, asthma and RLD. CT angiogram was performed as an outpatient which showed subsegmental filling defects which led to him being seen in the ED in March. ECHO at that time showed EF of 55 to 60% right ventricle was normal in size and normal RV function. Outpatient documentation indicates inappropriate sinus tachycardia which does not match his ED presentation CXR trace pleural effusions with mild bibasilar atelectasis and pulmonary vascular congestion. Elevated procalcitonin. 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 and yesterday had a fall that was witnessed. Patient believes that this is related to his worsening cerebral palsy. Patient denies hitting his head or LOC. Patient denies headache, dizziness, chest pain, palpitations, nausea vomiting diarrhea, sitting upright in his hospital bed appears weak and dyspneic with conversation. Patient became hypoxic with conversation placed on 2 L with resolution. Patient with wheezes. Patient receptive to admission for further evaluation and management. Please see A/P for further details. Admission Exam Per Admitting Provider Neuro: AAOx4, PERRLA, no aphagia, memory changes, CNII-XII grossly intact, + fatigue HEENT: head normocephalic, moist mucus membranes CV: S1/S2, tachycardic, (-) M/G/R, trace edema BL LE, cap refill < 3 seconds Resp: Lungs I/E wheezes in all issa. On 2LNC GI: Abdomen large/S/NT/ND, Ax4 bowel sounds, (-) CVA tenderness Musculoskeletal: 5/5 B/L UE strength, 5/5 B/L LE strength. No gait disturbance Skin: (-) rashes , (-) erythema. Psych: euthymic mood Principal Diagnosis Influenza A Atypical pneumonia Asthma exacerbation Discharge Exam Constitutional: WD/WN, vitals as above, NAD, sitting up in bed, pleasant, conversing easily Respiratory: Bilateral clear breath sound Cardiovascular: RRR, no murmur, no edema Vessels: no JVD or carotid bruit Chest: normal inspection of chest Abdomen: normal bowel sounds, soft, nontender, no hepatosplenomegaly Musculoskeletal: no cyanosis or clubbing, extremities motor strength 5/5 Skin: no rashes, warm and dry normal turgor Neurologic: PERRL, EOMI, accommodation nl, no face palsy, no dysarthria CN's II- XI intact bilaterally and moves all extremities Psychiatric: A+Ox3, euthymic affect Lymphatic: no cervical or axillary lymphadenopathy : deferred Discharge Data Allergies Allergy/AdvReac Type Severity Reaction Status Date / Time FARIDEH Inhibitors AdvReac Unknown cough per Verified 10/05/22 14:36 PCP records Consultations 10/05/22 13:38 ED Decision to Admit Stat 10/05/22 19:07 Consult Cardiology Routine Ordered Studies 10/06/22 13:30 CT chest diagnostic wo con Routine Hospital Course (1) SIRS (systemic inflammatory response syndrome): (2) Influenza A: (3) Chronic cough: (4) Tobacco use: (5) History of pulmonary embolism: (6) HTN (hypertension): (7) Depression: Plan Patient is a 67-year-old male with past medical istory of obesity, restrictive lung disease, PE, diastolic heart failure, right hemidiaphragm elevation who presented to the ED with shortness of breath and cough. He was found to have influenza A. Pro-Denny was elevated to 2.2. Chest x-ray showed cardiomegaly and mild congestive changes. Patient was placed on 2 L of oxygen. He was admitted to telemetry floor for further care. He was treated with xtbce-yia-htecy duo nebs, ceftriaxone/azithromycin and oral steroids. He was also started on [place] flu. Cardiology was consulted for possible acute on chronic diastolic heart failure. Echo was done which showed ejection fraction of 65 to 70%. Cardiology recommended that the principal problem is likely restrictive lung disease. CT chest without contrast was obtained; no evidence of interstitial lung disease. There were few mild groundglass opacities within left upper lobe suggestive of infectious process. Over the course of hospitalization, patient reported improvement in his symptoms. He was transitioned onto room air. He was discharged home on oral antibiotic, oral steroid and Tamiflu. He was instructed to follow-up with his primary care doctor and pulmonology. Total Time Total Time Spent Total Time Spent (In Minutes): 40 Total Time Includes: Examination of the Patient, Discharge Planning, Medication Reconciliation, Communication With Other Providers and Other Discharge Plan Discharge Items Patient Disposition: Home - Self-Care Reason For Visit: COUGH Discharge Diagnosis: Asthma exacerbation Pneumonia Activity: Resume your previous activity Non-emergency contact: Primary Care Provider Call non-emergency contact if: you have any medication questions Follow-up/Referrals: Berlin Martinez MD [Primary Care Provider] - Diet: Regular Addtl Attending Provider Instructions: You were admitted to the hospital for following condition; Influenza A- please take Tamiflu twice daily for 3 more days to complete the course Pneumonia-please take azithromycin 500 mg for 2 days and cefdinir 300 mg twice daily for 3 days. Asthma exacerbationcontinue home inhalers. You are prescribed prednisone 40 mg once daily for 3 days. Please follow-up with your primary care doctor and pulmonology in 1 week. Pending Studies at Discharge: No Stand-Alone Forms: My [employer], Work/School Release, Smoking Cessation Medications and DC Order Prescriptions: New azithromycin 250 mg Tablet 500 mg PO QAM 2 Days Qty: 4 0RF prednisone 20 mg Tablet 40 mg PO DAILY 3 Days Qty: 6 0RF oseltamivir [Tamiflu] 75 mg Capsule 75 mg PO BID 3 Days Qty: 6 0RF cefdinir 300 mg capsule 300 mg PO BID 3 Days Qty: 6 0RF Continued amlodipine 5 mg tablet 5 mg PO DAILY metoprolol succinate 25 mg tablet extended release 24 hr 25 mg PO DAILY albuterol sulfate 90 mcg/actuation HFA aerosol inhaler 90 mcg INHALATION Q4H PRN (Reason: Shortness Of Breath) budesonide-formoterol [Symbicort] 160-4.5 mcg/actuation HFA aerosol inhaler 2 inh INHALATION UD tramadol 50 mg Tablet 50 mg PO Q8H PRN (Reason: pain) Qty: 10 0RF benzonatate [Tessalon Perles] 100 mg Capsule 100 mg PO TID PRN (Reason: Cough) Qty: 20 0RF pantoprazole 40 mg Tablet,Delayed Release (Dr/Ec) 40 mg PO DAILY Qty: 30 0RF hydrochlorothiazide 25 mg Tablet 25 mg PO QAM Qty: 30 0RF fluticasone propionate 50 mcg/actuation [place],Suspension 2 spray NA DAILY Qty: 1 1RF Xarelto 20 mg Tablet 20 mg PO DAILY Rx Instructions: must administer with evening meal Discharge Orders: Discharge Order (Routine); Ordered 10/07/22 Ordered By: Jony Torres Admission Data Admit Date/Time: 10/05/22 13:43 Attending Provider: Jony Torres Admit Provider: Louise Estrada Primary Care Provider: Berlin Martinez Other Providers: Louise Estrada ; Robel Raymond
[2022-10-07] MEDS ORDERED: OSELTAMIVIR PHOSPHATE 75 MG CAP PO SCH (21:00)
== END 2022-10-07 13:08 | disposition home or self-care (01) | DRG 193 ==
LOC: ED 12:02 → EDINP 13:43 → SUATTDRO 13:43 → 2W 16:21